=== PATIENT | female | born 1950 | race Caucasian/White ===

== ENCOUNTER 2016-10-16 06:36 | Emergency (ER) | payer OTHER ==
[~2016-10-16] VITALS: Ht 170.2 cm; Wt 90.7 kg
[~2016-10-16 06:36] MED LIST: ASPIRIN EC325 MG PO; ASPIRIN EC81 MG PO; ATORVASTATIN CA80 MG PO; NICORETTE4 M2 BUCCAL; TUMS200 MG PO
--- NOTE | 2016-10-16 17:13 | EKG ---
[facility] [address] [facility] [place] [address] Signed Normal sinus rhythm Possible Left atrial enlargement Borderline ECG When compared with ECG of 29-APR-2016 20:18, T wave amplitude has increased in Anterior leads Confirmed by IRENE JARRETT MD ([id number]) on 10/16/2016 5:13:07 PM Electronically Signed By: IRENE JARRETT MD 10/16/16 1713 PATIENT NAME: MIAN VYAS WINSOME Electrocardiogram DATE OF : 54 PHYSICIAN: IRENE JARRETT MD REPORT #: [id number] REPORT IS CONFIDENTIAL AND NOT TO BE RELEASED WITHOUT AUTHORIZATION
[2016-11-03] MEDS ORDERED: CLINDAMYCIN HC150 MG PO (17:17)
== END 2016-10-16 14:01 | disposition home or self-care (01) ==
LOC: ED 06:36
DX: I69.320 Aphasia following cerebral infarction (principal); E11.9 Type 2 diabetes mellitus without complications; F20.9 Schizophrenia, unspecified; R53.1 Weakness; F17.200 Nicotine dependence, unspecified, uncomplicated; Z79.82 Long term (current) use of aspirin; Z79.899 Other long term (current) drug therapy
CPT/HCPCS: 71010; 80053; 81001; 85025; 93005; 93010; 96360; 96361; 99284; J7030

== ENCOUNTER 2016-11-06 13:20 | Emergency (ER) | payer OTHER ==
[~2016-11-06] VITALS: Ht 170.2 cm; Wt 91.0 kg
[~2016-11-06 13:20] MED LIST changes: +CLINDAMYCIN HC150 MG PO
[2016-11-06] MEDS ORDERED: METFORMIN HCL500 MG PO (14:02)
--- NOTE | 2016-11-06 21:45 | EKG ---
[facility] [address] [facility] [place], [place] [address] Signed Normal sinus rhythm Normal ECG When compared with ECG of 16-OCT-2016 07:29, No significant change was found Confirmed by LANDON LOMBARDI MD ([id number]) on 11/06/2016 9:45:16 PM Electronically Signed By: LANDON LOMBARDI MD 11/06/16 2145 PATIENT NAME: MIAN VYAS WINSOME Electrocardiogram DATE OF : 54 PHYSICIAN: LANDON LOMBARDI MD REPORT #: [id number] REPORT IS CONFIDENTIAL AND NOT TO BE RELEASED WITHOUT AUTHORIZATION
== END 2016-11-06 15:55 | disposition home or self-care (01) ==
LOC: ED 13:20
DX: R53.1 Weakness (principal); E11.9 Type 2 diabetes mellitus without complications; F17.200 Nicotine dependence, unspecified, uncomplicated; Z59.0 Homelessness; Z86.73 Personal history of transient ischemic attack (TIA), and cerebral infarction without residual deficits; Z79.84 Long term (current) use of oral hypoglycemic drugs; Z79.82 Long term (current) use of aspirin; Z79.899 Other long term (current) drug therapy
CPT/HCPCS: 51701; 70450; 71010; 80053; 81001; 83690; 84484; 85025; 93005; 93010; 96360; 96361; 99284; J7030

== ENCOUNTER 2016-12-06 16:44 | Emergency (ER) | payer OTHER ==
[~2016-12-06] VITALS: Ht 170.2 cm; Wt 90.7 kg
[~2016-12-06 16:44] MED LIST changes: +METFORMIN HCL500 MG PO
[2016-12-07] MEDS ORDERED: PROMETHAZINE HC25 M1 PO (00:41)
[2016-12-07] MEDS ORDERED: NORCO 5-325 TA1 EACH PO (00:41)
[2016-12-07] MEDS ORDERED: COLACE100 MG PO (00:41)
== END 2016-12-07 01:07 | disposition home or self-care (01) ==
LOC: ED 16:44
DX: R10.9 Unspecified abdominal pain (principal); F20.9 Schizophrenia, unspecified; Z85.43 Personal history of malignant neoplasm of ovary; Z86.73 Personal history of transient ischemic attack (TIA), and cerebral infarction without residual deficits; Z91.010 Allergy to peanuts; Z79.82 Long term (current) use of aspirin; Z79.899 Other long term (current) drug therapy
CPT/HCPCS: 71020; 74177; 80053; 81001; 83690; 85025; 87077; 87088; 87186; 96374; 96375; 99284; J1170; J2405; J7040; Q9967

== ENCOUNTER 2016-12-25 13:39 | Inpatient (IN) | payer OTHER ==
[~2016-12-25] VITALS: Ht 170.2 cm; Wt 78.3 kg
[~2016-12-25 13:39] MED LIST changes: +COLACE100 MG PO; +NORCO 5-325 TA1 EACH PO; +PROMETHAZINE HC25 M1 PO
--- OUTSIDE RECORDS SUMMARY | 2016-12-25 16:06 | XMS ---
Demographics + + + | Address | [address] | | | [address] | | | [place] [address] | + + + | Preferred Language | Unknown | + + + | Marital Status | Unknown | + + + | Rastafarian Affiliation | Unknown | + + + | Race | Unknown | + + + | Ethnic Group | Unknown | + + + Author + + + | Author | [facility] | + + + | Organization | [facility] | + + + | Address | [address] | | | [place] [address] | + + + | Phone | | + + + Care Team Providers + + + + | Care Manager Hydraulic Name | Role | Phone | + + + + Unavailable | Unavailable | + + + + PROBLEMS +---------+ + + +--------+ + + | Type | Condition | ICD9-CM | [id number] | Onset | Condition | SNOMED | | | | Code | Code | Dates | Status | Code | +---------+ + + +--------+ + + | Problem | Cerebrovas | | I67.9 | | Active | [id number] | | | cular | | | | | | | | disease, | | | | | | | | unspecifie | | | | | | | | d | | | | | | +---------+ + + +--------+ + + | Problem | Type 2 | E11.9 | | | Active | [id number] | | | diabetes | | | | | | | | mellitus | | | | | | +---------+ + + +--------+ + + | Problem | Ovarian | C56.9 | | | Active | [id number] | | | cancer | | | | | | +---------+ + + +--------+ + + | Problem | Abdominal | R19.00 | | | Active | [id number] | | | mass | | | | | | +---------+ + + +--------+ + + ALLERGIES No Known Allergies SOCIAL HISTORY Never Assessed PLAN OF CARE + +---------+ | Activity | Details | + +---------+ +---+ | | +---+ + + + | Follow Up | as scheduled with PCP Reason:null | + + + VITAL SIGNS + + + + | Height | 67 in | 2016-11-12 | + + + + | Weight | 169.2 lbs | 2016-11-12 | + + + + | BMI | 26.50 kg/m2 | 2016-11-12 | + + + + | Temperature | 97.9 degrees Fahrenheit | 2016-11-12 | + + + + | Heart Rate | 110 /min | 2016-11-12 | + + + + | Blood pressure systolic | 118 mm Hg | 2016-11-12 | + + + + | Blood pressure diastolic | 75 mm Hg | 2016-11-12 | + + + + MEDICATIONS + + + + + + + +--------+ | Medicati | Instruct | Dosage | Frequenc | Start | End Date | Duration | Status | | on | ions | | y | Date | | | | + + + + + + + +--------+ | Tums E-X | Orally | 1 tablet | | | | | Active | | 750 750 | PRN | as | | | | | | | MG | heartbur | needed | | | | | | | | n | | | | | | | + + + + + + + +--------+ | Metformi | Orally | 1 tablet | 12h | Oct, | | | Active | | n HCl | Twice a | with | | 2016 | | | | | 500 mg | day | meals | | | | | | + + + + + + + +--------+ | Atorvast | Orally | 1 tablet | | Oct, | | | Active | | atin | Once a | | | 2016 | | | | | Calcium | day with | | | | | | | | 80 mg | dinner | | | | | | | + + + + + + + +--------+ | Aspirin | orally | 1 tab | 24h | 24 Oct, | | | Active | | 81 mg | daily | | | 2016 | | | | + + + + + + + +--------+ RESULTS No Results PROCEDURES No Known procedures IMMUNIZATIONS No Known Immunizations MEDICAL (GENERAL) HISTORY + + + + | Type | Description | Date | + + + + | Medical History | Ovarian cancer. Patient | | | | was evaluated by | | | | Stephon in 2011. | | | | Debulking surgery was | | | | undertaken with Dr. 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 | | | | The patient was | | | | recommended 6 cycles of | | | | Taxol and carboplatin | | | | chemotherapy. However the | | | | patient declined | | | | chemotherapy at that point. | | | | Patient has not had any | | | | follow-up since then. | | + + + + | Medical History | Stroke | | + + + + | Surgical History | Cancer, removed ovary and | | | | tumor | | + + + + | Hospitalization History | [facility] re: SOB | 04/30/16 | + + + + | Hospitalization History | [facility]: | 08/2016 | | | Acute stroke | | + + + + | Hospitalization History | Left parietal lobe acute or | August/2016 | | | subacute infarct | | + + + + | Hospitalization History | Carotid Ultrasound: No | August/2016 | | | significant stenosis of the | | | | bilateral internal carotid | | | | arteries. Antegrade flow | | | | of the bilateral vertebral | | | | arteries | | + + + + | Hospitalization History | Echocardiogram: Left | August/2016 | | | ventricular systolic | | | | function, normal, EF | | | | 65-70%, mild grade 1 left | | | | ventricular diastolic | | | | dysfunction | | + + + +"
--- NOTE | 2016-12-25 18:08 | NUR ---
REPORT RECEIVED FROM IKER IN ED. WILL ATTEMPT TO PLACE IV WHEN PATIENT ARRIVES TO FLOOR. ALL QUESTIONS ANSWERED IN REPORT. AWAITING ARRIVAL TO ROOM 110.
--- NOTE | 2016-12-25 19:12 | NUR ---
PATIENT HAS JUST BEEN SITUATED IN HER ROOM. STAFF IS GETTING HER SOME FOOD.
--- NOTE | 2016-12-25 21:07 | NUR ---
PATIENT'S ASSESSMENT COMPLETE. BLOOD SUGAR WAS 209, AND GIVEN OF 3 UNITS SQ INSULIN IN THE RIGHT ARM. IV WAS FLUSHED WELL AFTER IV ANTIBIOTIC GIVEN.
--- NOTE | 2016-12-26 00:19 | NUR ---
PATIENT IS RESTING ON HER BACK SUPINE RESPIRATIONS EVEN AND REGULAR EYES CLOSED.
--- NOTE | 2016-12-26 04:51 | NUR ---
PATIENT ADMITED FOR DVT OF THE RT LEG. RIGHT LEG IS SLIGHTLY MORE SWOLLEN , BUT NOT RED OR HOT. PATIENT HAS A PSYC HX , BUT HAS BEEN VERY PLEASANT AND LUCID FOR THE MOST PART ON THIS SHIFT. VS STABLE. ON LOVENOX. PATIENT HAD A CVA LAST AUGUST. . PATIENT NEEDS A CONSULT WITH CASE MANAGEMENT/DISCHARGE PLANNING FOR PLACEMENT. OLDER BROTHER DROPPED HER OFF HERE. 20g IV IN THE LFA WITH LR AT 125mls/hr. PATIENT WAS GOING TO [facility], BUT PATIENT WAS DOING SOME SCREAMIMG AND IN REPORT WE WERE TOLD THEY WILL NOT TAKE HER NOW. PATIENT HAS SLEPT INTERMITTENTLY THROUGH THE SHIFT. PATIENT ARRIVED LAST EVENING JUST BEFORE THE END OF DAY SHIFT. 1800 DAMARI ADA DIET AND ON SLIDING SCALE INSULIN OF WHICH SHE GOT 3 SQ UNITS LAST NIGHT FOR A BLOOD SUGAR OF 209. PATIENT ATE A FAIR SUPER AND IS A STRONG STANDBY ASSIST TO THE BATHROOM. PATIENT NEEDS TO BE ENCOURAGED TO USE HER IS. ACTIVITY AD ARABELLA.
--- NOTE | 2016-12-26 07:07 | NUR ---
RECIEVED BEDSIDE REPORT FROM CRISTINA MARCUS AND CRISTINA PEREZ. PT AWAKE AND ALERT IN BED, NO COMPLAINTS AT THIS TIME.
--- NOTE | 2016-12-26 08:23 | NUR ---
Patient in bed, has breakfast. Will get bedbath after breakfast. Whiteboard updated.
--- NOTE | 2016-12-26 10:28 | NUR ---
Medications reconciled with patient. Poor historian. Per patient, she does not take her medications because she cannot read the labels
--- NOTE | 2016-12-26 11:45 | NUR ---
Patient in bed, very disoriented. Did not know where she was.
--- NOTE | 2016-12-26 12:32 | NUR ---
GOT PT UP TO CHAIR FOR LUNCH. PT REPORTS FEELING "MUCH BETTER" AFTER RESTING THIS MORNING. PT STATES THAT PAIN IN LEG IS BETTER. NO REDNESS OR WARMTH IN R LEG, LE IS SWOLLEN.
--- NOTE | 2016-12-26 14:50 | NUR ---
Patient in bed napping, doing well.
--- NOTE | 2016-12-26 19:16 | NUR ---
PT RESTED IN BED MOST OF SHIFT. REPORTS NO PAIN IN LEG, PAIN IN BACK "ACHY". PT REPORTS FEELING "MUCH BETTER AFTER TAKING A NAP". PT USES CALL LIGHT APPROPRIATLY. VOIDING WELL.
--- NOTE | 2016-12-26 19:38 | NUR ---
RECIEVED REPORT FROM DAY SHIFT NURSE. PT UP TO BATHROOM WITH LUMBER TYING MACHINE OPERATOR AND RN.
--- NOTE | 2016-12-26 20:42 | NUR ---
PT RESTING IN BED. BS OBTAINED. LOVENOX ADMINISTERED. LUNGS DIMINISHED, ENCOURAGED DEEP BREATHING. RLE SWOLLEN, +2-+3 EDEMA, NO REDNESS. PT DENIES NEEDS. CALL MILLER IN REACH. IVF INFUSING. BED ALARM ON.
--- NOTE | 2016-12-26 21:47 | NUR ---
PT SLEEPING ON L SIDE. REPOSITIONS INDEPENDENTLY. CALL MILLER IN REACH. BED ALARM ON.
--- NOTE | 2016-12-26 23:19 | NUR ---
PT UP TO BATHROOM WITH ASSIST. VOIDED. BACK TO BED. IVF INFUSING W/O DIFFICULTY. CALL MILLER IN REACH. BED ALARM ON.
--- NOTE | 2016-12-27 00:23 | NUR ---
PT SLEEPING ON L SIDE. STATES HER EAR HURTS AND REQUESTED A "BLOW-UP DONUT SEAT" TO RELIEVE SOME OF THE PRESSURE OFF HER EAR. OBTAINED ONE FROM [facility]. PT DENIES FURTHER NEEDS. IVF INFUSING W/O DIFFICULTY. CALL MILLER IN REACH. BED ALARM ON.
--- NOTE | 2016-12-27 01:57 | NUR ---
ASSISTED PT TO BATHROOM. VOIDED. BACK TO BED. IV IN HER R FOREARM INFILTRATED. OBTAINED IV ACCESS IN R ARM. PROVIDED PT WITH WARM PACK TO PLACE ON HER ARM. PT DENIES FURTHER NEEDS. CALL MILLER IN REACH. BED ALARM ON.
--- NOTE | 2016-12-27 03:02 | NUR ---
PT SLEEPING. IVF INFUSING W/O DIFFICULTY. SWELLING IN L ARM HAS DECREASED WITH USE OF THE WARM PACK (IV INFILTRATION SITE). CALL MILLER IN REACH. BED ALARM ON.
--- NOTE | 2016-12-27 03:52 | NUR ---
ASSISTED PT TO BATHROOM. PT VOIDED. BACK TO BED. PT DENIES NEEDS. CALL MILLER IN REACH. BED ALARM ON.
--- NOTE | 2016-12-27 04:22 | NUR ---
PT SLEPT WELL. UP TO BATHROOM A FEW TIMES. UNKNOWN LAST BM. VOIDING WELL. NEW IV IN L ARM. RLE +3 EDEMA. NO C/O PAIN. LOVENOX BID.
--- NOTE | 2016-12-27 04:24 | NUR ---
PT SLEEPING. IVF INFUSING. CALL MILLER IN REACH. BED ALARM ON.
--- NOTE | 2016-12-27 05:40 | NUR ---
PT RESTING IN BED. IVF INFUSING. WATER PITCHER FILLED. PT DENIES NEEDS. CALL MILLER IN REACH.
--- NOTE | 2016-12-27 07:22 | NUR ---
RECIEVED BEDSIDE REPORT FROM CRISTINA DOTSON. PT AWAKE AND ALERT IN BED. PT IS C/O EAR ACHE WHEN LYING ON LEFT SIDE D/T POSITIONING. NO REDNESS OR WARMTH ON EAR. BED ALARM ON.
--- NOTE | 2016-12-27 08:13 | NUR ---
DR. JARRETT IN TO SEE PATIENT.
--- NOTE | 2016-12-27 10:20 | NUR ---
PATIENT RESTING IN BED WITH EYES CLOSED. WOULD LIKE A SHOWER LATER TODAY.
--- NOTE | 2016-12-27 11:43 | NUR ---
PATIENT SITTING UP IN BED WITH LUNCH
--- NOTE | 2016-12-27 13:07 | NUR ---
PT RESTING IN BED, INVITED ME IN. SHE MUMBLED SOMETHING THAT RESEMBLED HELLO, AND THEN TRIED TO PULL HERSELF UP AND GATHER HER THOUGHTS. HER RN FELT SHE HAD NOTICED A DECLINE IN PT'S COGNITIVE ABILITIES. I VISITED WITH HER, HER THOUGHTS WERE SOMEWHAT JUMBLED, AND THE MORE WE TALKED THE MORE SHE WAS AWARE THAT HER WORDS WEREN'T MAKING MUCH SENSE. I ASKED HER IF I COULD PRAY FOR HER, SHE SAID "PLEASE", AND HELD OUT HER HAND. GOD BLESS HER , I WILL CONTINUE TO FOLLOW NEEDED
--- NOTE | 2016-12-27 13:27 | NUR ---
PT SLEEPING, BREATHING EVEN AND UNLABORED.
--- NOTE | 2016-12-27 14:33 | NUR ---
PATIENT UP ONE PERSON ASSIST WITH WALKER TO SHOWER. LINES CHANGED. FRESH ICE WATER GIVEN.
--- NOTE | 2016-12-27 14:45 | NUR ---
patient back to bed from shower. patient refused to sit in the chair.
--- NOTE | 2016-12-27 14:55 | NUR ---
PT IS UPSET THAT SHE WAS ASKED TO SIT IN THE CHAIR. SHE STATED THAT "THE CHAIR WOULD KILL HER". PT IS TRYING TO BLOW UP A DOUGHNUT CUSHION FOR HER EAR, STATING THAT SHE THINKS HER EAR HAS AN ABCESS DUE TO LAYING ON IT. PT'S SISTER IS AT BEDSIDE. PT'S SISTER WOULD LIKE TO MEET WITH DR JARRETT AND GLADYS MEJIA.
--- NOTE | 2016-12-27 16:00 | NUR ---
SNAP SHEARER AND FAMILY IN TALKING WITH PATIENT.
--- NOTE | 2016-12-27 16:08 | NUR ---
CARE CONFRENCE WITH PT'S SISTER, ROBRETO PRIVATE WATCHMAN, DR JARRETT, AND ALL RN. DISCUSSION AROUND PT FUTURE CARE, SERVICES AVAILABLE. PT WOULD LIKE TO BE FULL CODE. PT'S SISTER WILL LOOK INTO AQUIRING SERVICES FOR PT WITH [employer] AND ANIMAL LABORATORY TECHNICIAN. PT REPORTS LEG FEELS MUCH BETTER, SWELLING HAS REDUCED. NO COUGH NOTED. LUNGS CLEAR.
--- NOTE | 2016-12-27 16:16 | NUR ---
PT CARE CONFERENCE MET WITH PT, PT'S SISTER GUSTABO, DR JARRETT, MYSELF AND ALL EVANS. DISCUSSED PLACEMENT OF PT AFTER BEING DISCHARGED. PT AND SISTER WOULD LIKE HER TO GO TO [facility], HOWEVER NOT SURE IF THEY WILL TAKE HER SHE LEFT AMA IN AUGUST. ALSO STATED THAT I COULD CALL [facility] AND SEE IF THEY WOULD BE ABLE TO TAKE HER. LOUIS IS GOING TO LOOK INTO GETTING POWER OF FOOT PRESS OPERATOR AND THE FINANCIAL ASPECT OF THINGS. DR JARRETT ALSO TALKED WITH PT AND SISTER REGARDING THE PT CODE STATUS AND SHE STATES SHE WANTS EVERYTHING DONE FOR HER. PT LAYING IN THE BED MUMBLING TO HERSELF AND JUST TALKING ABOUT PEOPLE GOING TO HURT HER ETC. DR JARRETT ATTEMPTING TO REASSURE PT.
--- NOTE | 2016-12-27 16:21 | NUR ---
READJUSTED PT IN BED. PT REPORTS PAIN IS STILL WELL CONTROLLED. SENSATION IS RETURNING, PT REPORTS "NUMB AND TINGLING ALL OVER" AT THIS TIME.
--- NOTE | 2016-12-27 16:45 | NUR ---
I CALLED [facility] THEY STATED THEY WOULD LOOK AT THE CHART BUT WERE UNSURE IF THEY WOULD BE ABLE TO TAKE PT DUE TO BEHAVIORS SHE HAS EXHIBITED THEIR AT OTHER ADMISSIONS. CHART NOTES SENT TO [facility]. CALLED AND TALKED WITH JAKI AT [facility] AND GAVE HER ZE PHONE NUMBER. LOUIS CALLED AND STATED THAT SHE HAD CALLED TO TALK TO APRON MAN AND STATED THEY COULDN'T HELP HER TODAY. SHE WENT TO LIBRARY AND PRINTED OFF A DURABLE POWER OF AUDIT INTERN FOR MEDICAL AND STATES SHE WILL BRING THAT IN TOMORROW AM, WHETHER MIAN WILL SIGN IT OR NOT SHE DIDN'T KNOW. SHE ALSO STATED THAT SHE TALKED TO [facility] ABOUT MIAN AND THEY STATED THEY HAD EVERYTHING SET UP FOR HER TO GO SHE JUST NEEDS TO AGREE TO IT. SISTER DID STATE IN EARLIER CARE CONFERENCE THAT [facility] WILL NOT TAKE HER. WELL TALK WITH PARTIES TOMORROW.
--- NOTE | 2016-12-27 18:36 | NUR ---
PATIENT RESTING IN BED WATCHING TV. CALL BUTTON IN REACH. NO OTHER NEEDS AT THIS TIME.
--- NOTE | 2016-12-27 19:45 | NUR ---
RECEIVED REPORT FROM CRISTINA CARRIZALES FROM [facility]. PT IN BED LAYING ON HER LEFT SIDE. CALL LIGHT WITHIN REACH.
--- NOTE | 2016-12-27 21:00 | NUR ---
PT PLEASANT AND COOPERATIVE. MOSTLY WITH EYES CLOSED, DID ANSWER QUESTIONS. NOTE HER RIGHT LOWER LEG IS LARGER THAN HER LEFT LEG, WITH WARMNESS THROUGHOUT CALF REGION, WITH NO REDNESS. PT STATES THAT THE RIGHT CALF IS SORE COMPARED TO THE LEFT. ATTEMPTED TO FLUSH IV SITE, BUT WAS UNABLE TO FLUSH OR DRAW BLOOD, WILL REPLACE. PT HAS CALL LIGHT WITHIN REACH, OFFERS NO OTHER COMPLAINTS OR NEEDS AT THIS TIME.
--- NOTE | 2016-12-27 21:21 | NUR ---
PATIENT DID ORAL CARE, WASHED HANDS AND FACE. COMBED HER HAIR.
--- NOTE | 2016-12-27 22:30 | NUR ---
DC'D PT IV IN LEFT FOREARM, INTACT. RESTARTED IV IN LEFT HAND, 22 G, TOLERATED WELL. PT HAS LR@65 INFUSING AT THIS TIME. CALL LIGHT WITHIN REACH, NO OTHERS NEEDS REQUESTED.
--- NOTE | 2016-12-27 23:37 | NUR ---
ASSISTED PATIENT TO THE BATHROOM USING WALKER AND BACK TO BED. CALL LIGHT IS WITHIN PATIENT'S REACH. BED ALARM ON.
--- NOTE | 2016-12-28 02:10 | NUR ---
PT USED CALL LIGHT TO VOID. ANOTHER RN TOOK PT. LT LEG REMAINS UNCHANGED AT THIS TIME. PT OFFERS NO COMPLAINTS OF DISCOMFORT.
--- NOTE | 2016-12-28 04:00 | NUR ---
PT LAYING ON RIGHT SIDE, EYES CLOSED, RESP EVEN AND UNLABORED.
--- NOTE | 2016-12-28 05:59 | NUR ---
PT WOKE FOR VITAL SIGNS. ASSESSMENT RIGHT LEG, UNCHANGED FROM BEGINING OF SHIFT. WARM, SOME PINKNESS WITH SWELLING CONTINUES. PT HAS NO COMPLAINTS AT THIS TIME. MOSTLY SLEEPING WHILE VS BEING DONE. IV SITE INTACT. CALL LIGHT WITHIN HER REACH.
--- NOTE | 2016-12-28 06:01 | NUR ---
PT HAS BEEN UP TO BATHROOM X 2 THIS SHIFT. HAS BEEN APPROPRIATE, AND MOSTLY SLEEPY. IV RESTARTED IN LT HAND, LR INFUSING @ 65. PT RT LEG REMAINS WARM, WITH SPOTS OF PINKNESS, WITH SWELLING IN RT FT. ANKLE. PT HAS TURNED SELF THROUGHOUT THE NIGHT. ONE PERSON ASSIST TO BATHROOM, USES CALL LIGHT APPROPRIATELY.
--- NOTE | 2016-12-28 07:27 | NUR ---
PT CALLED, UP TO BATHROOM, THEN TO CHAIR. GOT HER SET UP WITH BREAKFAST AND AND WARM BLANKETS. PT DID FINE WITH WALKER. CALL LIGHT IN PLACE
--- NOTE | 2016-12-28 07:45 | NUR ---
PT SITTING UP IN RECLINER EATING BREAKFAST. REPORTS NO PAIN OR NAUSEA
--- NOTE | 2016-12-28 09:50 | NUR ---
PT UP TO BATHROOM WITH INTERVENTIONAL CARDIOLOGIST TO TAKE SHOWER.
--- NOTE | 2016-12-28 10:20 | NUR ---
PT SISTER LOUIS IS HERE THIS AM AND BROUGHT IN DURABLE POWER OF POST PARTUM NURSE FORMS FOR PT TO SIGN. ALSO A NOTERY WAS HERE TO NOTORIZE THESE FORMS.
--- NOTE | 2016-12-28 11:47 | NUR ---
TOOK SOME HAMMAD AWAY FROM PT. PUT THEM IN A ZIPLOC BAG AND PUT THEM IN HER CLOSET, SHE STILL HAD A PAIR OF KID SCISSORS, NURSE AWARE, PT. DECIDED TO CUT HER HAIR. PT SAID HER HAIR WAS IN HER EYES. TOOK PTS BLOOD SUGAR AND IT WAS 174 AND GOT HER SET UP WITH HER LUNCH TRAY.
--- NOTE | 2016-12-28 12:49 | NUR ---
PT IS IN ROOM TRYING TO TAKE A NAP WITH HER HEAD UNDER THE BLANKETS, I PULLED THE BLANKETS DOWN AND CHECKED ON HER, SHE IS DOING FINE. SAID SHE IS JUST TIRED, TURNED THE LIGHTS OFF AND TOOK HER TRAY OUT. CALL LIGHT IN REACH
--- NOTE | 2016-12-28 13:00 | NUR ---
[facility] CALLED AND STATED THEY WILL NOT BE TAKING MIAN A PT DUE TO HER NON COMPLIANCE WITH THEIR RULES. TALKED AGAIN WITH [facility] AND SHE IS COMING IN THIS AFTERNOON TO VISIT WITH PT.
--- NOTE | 2016-12-28 13:06 | NUR ---
PT LAYING ON HER LEFT SIDE AGAIN IN BED. SHE SEEMS AWARE OF MY PRESENCE, BUT LACKS THE COGNITIVE ABILITY TO PUT TOGETHER A STRING OF COHESIVE THOUGHTS. SOFT SPOKEN, LOOKS RATHER BEWILDERED. SHE DID SAY YES WHEN I ASKED HER IF SHE WOULD LIKE ME TO PRAY FOR HER. WILL CONTINUE TO FOLLOW
--- NOTE | 2016-12-28 14:45 | NUR ---
PT RESTING IN BED REPORTS NO PAIN, ALERT, ANSWERS QUESTIONS APPROPRIATELY. PT ONE PERSON ASSIST WITH FWW
--- NOTE | 2016-12-28 14:50 | NUR ---
ROLLER OF [facility] IN WITH PT TO ASSESS FOR POSSIBLE ADMISSION TO THERE FACILITY.
--- NOTE | 2016-12-28 16:30 | NUR ---
FAXED CHART NOTES TO [facility] AT [phone], FAX NOTED TO BE BUSY WILL FAX AGAIN IN THE AM.
--- NOTE | 2016-12-28 18:35 | NUR ---
PT HAS BEEN UP IN RECENR FOR MEALS, REPORTS NO PAIN, HAD BM YESTURDAY, REQUESTED PRUNE JUICE TODAY. POWER OF OPTICAL ENGINEERING TECHNICIAN SIGNED BY PT TO SISTER. REP. REPORT [facility] IN TO TALK WITH PT THIS AFTERNOON. PT HAS BEEN COOPERATIVE WITH CARE. GOOD URINE OUT
--- NOTE | 2016-12-28 19:05 | NUR ---
SHIFT REPORT RECIEVED. PATIENT RESTING IN BED. CALL LIGHT IN REACH.
--- NOTE | 2016-12-28 19:30 | NUR ---
PATIENT UP TO RECLINER. CALL LIGHT IN REACH.
--- NOTE | 2016-12-28 20:20 | NUR ---
PATIENT ASSESSMENT COMPLETE AND EVENING MEDS GIVEN. PATIENT IS AAOX3. ANSWERS QUESTIONS APPROPRIATELY. COOPERATIVE WITH CARE. LUNG SOUNDS ARE CLEAR BUT DIMINISHED. PATIENT DENIES NAUSEA OR PAIN. ABDOMINAL MASS PROTRUDES TO THE RIGHT OF THE UMBILUCUS. PATIENT STATES IT IS UNCOMFORTABLE TO TOUCH THE MASS. BOWEL SOUNDS ARE ACTIVE. PATIENT DENIES TINGLING OR NUMBNESS IN THE LOWER EXTREMITIES. DOES STATE THAT SHE CAN FEEL THAT HER "VEINS HAVE EXPLOADED UNDER THE SKIN" ON THE RIGHT INNER THIGH. LEGS ARE WITHOUT REDNESS, PAIN, AND WARM. LEFT PEDAL PULSE IS STRONG, RIGHT PEDAL PULSE IS WEAK/THREADY. PATIENT IS UP IN THE RECLINER WATCHING TV WITH THE CALL LIGHT WITHIN REACH.
--- NOTE | 2016-12-28 21:10 | NUR ---
PATIENT BRUSHED HER TEETH AND FLOSS.
--- NOTE | 2016-12-28 21:38 | NUR ---
PT CALLED AND WANTED TO USE THE BATHROOM AND GET INTO BED. PT OFFERS NO COMPLAINTS ONCE SHE GOT BACK INTO BED. CALL LIGHT WITHIN HER REACH.
--- NOTE | 2016-12-28 22:19 | NUR ---
PATIENT REQUESTING PRN TYENOL FOR ACHING IN RIGHT SHOULDER AND LEFT KNEE. PRN TYENOL PROVIDED PER ORDERS. PATIENT EXPAINS PAIN OCATION AND DISCRIPTION BUT IS NOT MANOLO TO PROVIDE A NUMBER ON THE 0-10 SCALE. SHANA SHAH RESUTED IN A RATING OF 3/10. PATIENT RESTING IN BED. WATCHING TV. CALL LIGHT IN REACH. IV FLUIDS INFUSING, SITE WNL.
--- NOTE | 2016-12-28 22:20 | NUR ---
PATIENT REQUESTING PRN TYENOL FOR ACHING IN RIGHT SHOULDER AND LEFT KNEE. PRN TYENOL PROVIDED PER ORDERS. PATIENT EXPLAINS PAIN LOCATION AND DISCRIBES BUT IS NOT ABLE TO PROVIDE A NUMBER ON THE 0-10 SCALE. NONVERBA SCALE RESULTED IN A RATING OF 3/10. PATIENT RESTING IN BED. WATCHING TV. CALL LIGHT IN REACH. IV FLUIDS INFUSING, SITE WNL. WARM BLANKET PROVIDED.
--- NOTE | 2016-12-28 22:55 | NUR ---
PATIENT APPEARS RESTLESS. CONTINUES TO GET UP TO THE SIDE OF THE BED AND THEN BACK IN BED. REQUESTED ASSISTANCE TO THE BATHROOM, WHICH RN ASSISTED WITH. PATIENT BACK IN BED. STATES SHE WANTS TO SLEEP BUT JUST CANNOT GET COMFORTABLE. PATIENT IS FIGGETING WITH THE BLANKETS AND IS NOT ABLE TO TELL THE RN WHAT SHE NEEDS. PRN MEDS FOR AGITATION PROVIDED. EXPLAINED MEDICATION TO PATIENT AND SHE AGREED TO TRY TO SEE IF IT HELPS. WILL CONTINUE TO MONITOR.
--- NOTE | 2016-12-28 23:29 | NUR ---
PATIENT RESTING IN BED. RR 16. CALL LIGHT IN REACH. BED ALARM ON.
--- NOTE | 2016-12-29 01:05 | NUR ---
PATIENT GOT UP SITTING BY THE BED, ALARM WENT OFF. ASSISTED PATIENT TO THE BATHROOM BACK TO BED. DAMARI IGHT WITHIN REACH. PATIENT IS STILL AWAKE CLIPPING HER TOE NAILS.
--- NOTE | 2016-12-29 02:00 | NUR ---
PATIENT RESTING IN BED. HOB ELEVATED. EYES CLOSED. RR18. CALL LIGHT IN REACH.
--- NOTE | 2016-12-29 04:19 | NUR ---
PATIENT RESTED ON AND OFF THROUGHOUT SHIFT. REPORTED JOINT SORENESS, PRN TYLENOL GIVEN X1. PATIENT AAOX3, FORGETFUL AND POOR HISTORIAN. LUNG SOUNDS DIMINISHED. ABD MASS TO RIGHT OF UMBILICUS, TENDER TO PALPITAION. BOWELS ACTIVE. ADA DIET & GLUCOSE CHECKS. SBA W/FWW. CMS INTACT. IV FLUIDS INFUSING. BED ALARM IN USE.
--- NOTE | 2016-12-29 04:20 | NUR ---
PATIENT RESTING IN BED. EYES CLOSED. RR 18. HOB ELEVATED. CALL LIGHT IN REACH. BED ALARM ON.
--- NOTE | 2016-12-29 05:48 | NUR ---
HOME ECONOMICS TEACHER IN ROOM PERFORMING VS. PATIENT RESTING IN BED, IS DROWSY BUT COMPLIANT WITH CARE. IVF INFUSING, SITE WNL. PATIENT DENIES PAIN. CALL LIGHT IN REACH. NO FURTHER NEEDS AT THIS TIME.
--- NOTE | 2016-12-29 07:10 | NUR ---
BEDSIDE REPORT RECEIVED FROM CRISTINA KWAN. PT AWAKE IN BED, DRINKING COFFEE. IVF INFUSING AT 65 ML/HR, IV PATENT. PT HAS CALL LIGHT IN REACH. BED ALARM SET.
--- NOTE | 2016-12-29 07:29 | NUR ---
patient sitting up in bed watching TV. breakfast set up. fresh ice water and coffee given. call button in reach.
--- NOTE | 2016-12-29 08:03 | NUR ---
PT ASSESSMENT COMPLETE. PT ORIENTED TO PERSON, AND PLACE, NOT TO EXACT DATE. DORSALIS PEDAL PULSES PALPATED BIATERALLY, FAINT, LOWER EXTREMITIES WARM, DRY, CAP REFILL <3. PT LUNGS CLEAR IN ALL LOBES. IV PATENT, FLUSHES WELL, IVF INFUSING AT 65 ML/HR. BED ALARM SET. PT EATING BREAKFAST, HAS CALL LIGHT. NO ADDITIONAL REQUESTS AT THIS TIME.
--- NOTE | 2016-12-29 08:50 | NUR ---
PATIENT UP TO SHOWER. LINENS CHANGED.
--- NOTE | 2016-12-29 09:30 | NUR ---
PT CALLED. DONE WITH SHOWER. ASSISTED PT WITH DRYING, GETTING DRESSED AND BACK TO BED. BED ALARM ON. CALL LIGHT WITHIN REACH IS BEDSIDE TABLE WITH PT BELONGINGS. PT DENIES FURTHER NEEDS.
--- NOTE | 2016-12-29 09:38 | NUR ---
PATIENT SITTING UP IN BED WATCHING TV. NO NEEDS AT THIS TIME. CALL BUTTON IN REACH. FRESH ICE WATER.
--- NOTE | 2016-12-29 10:13 | NUR ---
O810 REFAXED CHART NOTES TO [facility] AT [phone]. AGAIN RECIEVED BUSY NOTE FROM [facility]. 0905 TALKED WITH JAKI FROM [facility], TOLD HER I HAD FAXED NOTES X2 AND GOTTEN A BUSY SIGNAL. SHE SAID WELL ARE YOU FAXING IT TO [phone] TOLD HER NO I HAD FAXED IT TO THE NUMBER SHE HAD WRITTEN, SHE THEN STATED SHE MUST HAVE WRITTEN DOWN THE WRONG NUMBER. REFAXED CHART NOTES TO HER. RECIEVED FAX CONFIRMATION. 1010 CALLED [facility]. UNABLE TO SPEAK WITH ADMISSIONS PERSONEL, BUT TOLD TO FAX CHART NOTES TO [phone] TO INCLUDE FACESHEET, ER NOTES, H AND P, PROG NOTES, IMAGING, LABS, AND MEDS.
--- NOTE | 2016-12-29 10:39 | NUR ---
CHECKED ON PT, PT HAS NO REQUESTS AT THIS TIME. BED ALARM SET, CALL LIGHT IN REACH. PT INFORMED THAT LUNCH WILL BE COMING IN ABOUT AN HOUR.
--- NOTE | 2016-12-29 11:36 | NUR ---
RECIEVED A PHONE CALL FROM [facility] STATING THEY WOULD TAKE THE PT AFTER THEY TALK WITH [employer] AND HER [employer] COACH, THEY STATED IT WOULD TAKE THEM A WEEK TO BE ABLE TO TAKE HER TO MAKE SURE THEY HAVE AUTH, FURNITURE, ORDERS AND ALL FOR PT TO MOVE IN. INFORMED DR JARRETT OF THIS.
--- NOTE | 2016-12-29 11:54 | NUR ---
1130 RECIEVED PHONE CALL FROM [facility] STATING THEY CAN'T / WON'T TAKE PT ON AT THIS TIME 1150 RECIEVED A PHONE CALL FROM MIQUEL [facility] STATING THEY ARE GOING TO HAVE TO WAIT UNTIL [facility] GETS THE FUNDING AVAILABLE TO PAY FOR HER PLACEMENT IN A FACILITY. 1155 CALLED [facility]PT OF [facility] LEFT MESSAGE FOR GIOVANA TO CALL ME BACK.
--- NOTE | 2016-12-29 11:56 | NUR ---
PT SITTING UP IN BED, EATING LUNCH. ADMINISTERED 1 UNIT NOVOLOG INSULIN PER SLIDING SCALE FOR 146 CBG. PT HAS CALL LIGHT, NO ADDITIONAL REQUESTS AT THIS TIME. BED ALARM SET.
--- NOTE | 2016-12-29 12:12 | NUR ---
PATIENT SITTING UP IN BED WATCHING TV AND EATING LUNCH. CALL BUTTON IN REACH.
--- NOTE | 2016-12-29 12:46 | NUR ---
ANSWERED PT CALL LIGHT. BROUGHT PT WARM BLANKET PER PT REQUEST. NO ADDITIONAL REQUESTS AT THIS TIME. CALL LIGHT IN REACH.
--- NOTE | 2016-12-29 13:49 | NUR ---
PT USED CALL LIGHT APPROPRIATELY. ASSISTED PT TO RESTROOM WITH FWW AND SBA. PT HAD 550 ML VOID, PT BACK TO BED. IVF INFUSING AT 65 ML/HR. BED ALARM SET. CALL LIGHT IN REACH. BROUGHT PT MORE ICE FOR POP.
--- NOTE | 2016-12-29 14:54 | NUR ---
PT AFTERNOON ASSESSMENT COMPLETE. PT LYING IN BED, IV LR INFUSING AT 65 ML/HR. PT'S LUNGS CLEAR THROUGHOUT ALL LOBES. PT CSM INTACT, MODERATE NON-PITTING EDEMA NOTED IN RLE. FAINT PULSES AUSCULTATED BILATERALLY LOWER EXTREMITIES. PT HAS NO REQUESTS AT THIS TIME, CALL LIGHT IN REACH. BED ALARM IS SET.
--- NOTE | 2016-12-29 15:33 | NUR ---
PATIENT RESTING IN BED WITH EYES CLOSED.
--- NOTE | 2016-12-29 16:39 | NUR ---
ANSWERED PT'S CALL LIGHT. ASSISTED PT TO RESTROOM, PT VOIDED 500 ML. PT BACK TO BED, BED ALARM SET. CALL LIGHT IN REACH.
--- NOTE | 2016-12-29 16:40 | NUR ---
RN IN ASSISTING PATIENT INTO BATHROOM.
--- NOTE | 2016-12-29 16:42 | NUR ---
RETURNED PT'S SON BRUNA'S PHONE CALL. UPDATED SON ON PT STATUS. SON SAID HE SPOKE TO [facility] TODAY, AND HE IS WORKING ON GETTING HER THINGS TOGETHER.
--- NOTE | 2016-12-29 18:10 | NUR ---
IN PT ROOM, PT HR 120 ON MONITOR AND BY RADIAL PULSE. PT LYING BACK IN BED. PT TALKING ABOUT TIMES WHEN SHE IS AGITATED "SOMETHING IS WRONG WITH HER FAMILY, THAT SHE IS UGLY" PT DENIES AGITATION AT THIS TIME. BP STABLE, WILL CONTINUE TO MONITOR. CALL LIGHT IN REACH.
--- NOTE | 2016-12-29 18:12 | NUR ---
PATIENT RESTING IN BED WATCHING TV. RN NOTIFIED ABOUT HEART RATE. CALL BUTTON IN REACH. FRESH ICE WATER GIVEN.
--- NOTE | 2016-12-29 18:53 | NUR ---
ANSWERED PT CALL LIGHT, PT STATES SHE CAN'T BREATHE. ELEVATED HEAD OF BED. CHECKED SPO2, 95% ON ROOM AIR. PT STATES SHES OKAY. WILL CONTINUE TO MONITOR. PT HAS CALL LIGHT IN REACH.
--- NOTE | 2016-12-29 19:00 | NUR ---
PT HAS BEEN COOPERATIVE THROUGHOUT SHIFT. PT RECEIVED TYLENOL X 1 FOR PAIN IN ABDOMEN. PT USED CALL LIGHT APPROPRIATELY FOR TRIPS TO RESTROOM, CONTINUES TO BE IMPULSIVE WITH WALKER USE, TRIES TO GET UP WITHOUT WALKER. PT CSM INTACT TRHOUGHOUT SHIFT. MODERATE EDEMA NOTED IN RLE, PULSES PALPABLE. LUNGS CLEAR THROUGHOUT SHIFT.
--- NOTE | 2016-12-29 19:05 | NUR ---
SHIFT REPORT RECIEVED. PATIENT RESTING IN BED. CALL LIGHT IN REACH. BED ALARM ON. PATIENT DENIES NEEDS AT THIS TIME.
--- NOTE | 2016-12-29 19:50 | NUR ---
EVEING MEDS GIVEN PER ORDER. PATIENT AAOX3, ANSWERS SOME QUESTIONS APPROPRIATELY BUT RESPONDS WITH CONFUSED SPEECH AT OTHER TIMES. LUNG SOUNDS ARE DIMINISHED THROUGHOUT AND CLEAR. BOWEL SOUNDS ACTIVE, NO NAUSEA AND GOOD APPETITE. PATIENT DENIES NUMBNESS BY REPORTS TINGLING IN HER LOWER EXTREMITIES. PEDAL PULSE ON RIGHT SIDE IS FAINT, LEFT SIDE IS STRONG. VS ARE WNL. PATIENT IS SLIGHTLY AGITATED AND REPORTS FEELING CONCERNED ABOUT PEOPLE NOT LIKING HER. STATES "THEY GAVE ME CANCER THROUGH MY THROAT WITH THE FOOD". PRN SEROQUEL GIVEN. PATIENT RESTING IN BED. CALL LIGHT IN REACH. BED ALARM ON.
--- NOTE | 2016-12-29 22:00 | NUR ---
PATIENT REQUESTED ASSISTANCE UP TO THE BATHROOM. SBA, PATIENT DOES NOT USE WALKER APPROPRIATELY. BACK IN BED. DENIES PAIN. NO FURTHER NEEDS AT THIS TIME. CALL LIGHT IN REACH. BED ALARM ON.
--- NOTE | 2016-12-29 23:07 | NUR ---
PATINT RESTING IN BED. EYES CLOSED. RR 16. CALL LIGHT IN REACH. BED ALARM ON.
--- NOTE | 2016-12-30 02:15 | NUR ---
PATIENT RESTING IN BED. EYES CLOSED. RR18. CALL LIGHT IN REACH. BED ALARM ON.
--- NOTE | 2016-12-30 04:15 | NUR ---
PATIENT REQUESTED ASSISTANCE. BRANCH MECHANIC ASSISTED HER TO THE BATHROOM AND BACK INTO BED. BED ALARM ON. CALL LIGHT IN REACH.
--- NOTE | 2016-12-30 04:28 | NUR ---
PATIENT RESTED ON AND OFF THROUGHOUT THE NIGHT. DURING BEGINNING OF SHIFT SHE BECAME INCREASINGLY AGITATED, PRN MEDS FOR AGITATION GIVEN. PATIENT ANSWERS SOME QUESTIONS APPROPRIATELY AND IS UNABLE TO EXPRESS HER NEEDS AT OTHER TIMES. PATIENT USES CALL LIGHT APPROPRIATELY, BUT DOES NOT WAIT FOR ASSISTANCE TO BE IN THE ROOM TO START GETTING UP. BED ALARM IN USE. ADA DIET AND GLUCOSE CHECKS. VS WNL.
--- NOTE | 2016-12-30 06:23 | NUR ---
PATIENT RESTING IN BED. MORNING VS ARE WNL. PATIENT DENIES ANY NEEDS AT THIS TIME. BED ALARM ON. CALL LIGHT IN REACH.
--- NOTE | 2016-12-30 07:07 | NUR ---
BEDSIDE REPORT RECEIVED FROM RN ANIYA, PT SLEEPING. IVF INFUSING AT 65 ML/HR. BED ALARM IS SET. WILL CONTINUE TO MONITOR.
--- NOTE | 2016-12-30 07:50 | NUR ---
ASSISTED PT TO RESTROOM FOR VOID W FWW AND STANDBY ASSIST. PT RECEIVED 3 UNITS NOVOLOG FOR CBG 177. PT UP TO CHAIR FOR BREAKFAST. CALL LIGHT GIVEN TO PT.
--- NOTE | 2016-12-30 08:05 | NUR ---
DR. JARRETT IN TO SEE PT. VERBAL ORDER TO STOP IVF. IV SALINE LOCKED, WNL. PT UP TO CHAIR. GIVEN CALL LIGHT. PT STATING SHE DOES NOT FEEL GOOD. ASKED PT TO DESCRIBE, PT DOES NOT VERBALIZE. WILL CONTINUE TO MONITOR.
--- NOTE | 2016-12-30 08:11 | NUR ---
PT DID NOT ORDER BREAKFAST, RUBIO HARRIS IN ROOM TO ASSIST PT TO ORDER BREAKFAST. BROUGHT SF PT CHOCOLATE PUDDING UNTIL BREAKFAST ARRIVES. CALL LIGHT W PT.
--- NOTE | 2016-12-30 09:25 | NUR ---
PT COMPLAINING OF PAIN IN VEINS. IN ARMS. CSM INTACT. GAVE PT TYLENOL 500 MG PRN, ZOLOFT. BROUGHT PT WARM BLANKET TO WRAP AROUND LEFT ARM. IV SITE PATENT, FLUSHES WELL, NO REDNESS AROUND SITE. PT GIVEN CALL LIGHT, UP IN CHAIR AT THIS TIME. IV SALINE LOCKED. WILL CONTINUE TO MONITOR.
--- NOTE | 2016-12-30 10:48 | NUR ---
PT SAID HER IV WAS HURTING HER I LET HER NURSE KNOW.
--- NOTE | 2016-12-30 11:08 | NUR ---
ANSWERED PT CALL LIGHT, ASSISTED PT BACK TO BED WITH SBA AND FWW. BED ALARM IN PLACE. CALL LIGHT IN REACH. WILL CONTINUE TO MONITOR.
--- NOTE | 2016-12-30 13:45 | NUR ---
PT APPEARED AGITATED, RUBBING LEFT ARM, TANGLED IN COVERS. CHECKED ON PT. PT STATING VEINS ARE BOTHERING HER AGAIN IN HER ARM. PT SPEECH DIFFICULT TO COMPREHEND. ASSESSED EXTREMITIES, CSM INTACT. BROUGHT PT WARM BLANKET. PT HAS NO ADDITIONAL REQUESTS. CALL LIGHT IN REACH.
--- NOTE | 2016-12-30 14:28 | NUR ---
PT ASSESSMENT COMPETE. PT CONTINUES TO COMPLAIN OF "SHOOTING PAINS" IN RIGHT ARM. ADMINISTERED PRN PO 500 MG ACETAMINOPHEN FOR REPORTED PAIN. PT DID NOT RATE PAIN WITH A NUMBER. WILL CONTINUE TO MONITOR PAIN. PT EXTREMITIES WARM BIATERALLY UPPER AND LOWER, CAP REFILLS <3 SECONDS IN ALL EXTREMITIES, PULSES STRONG DORSALIS PEDIS BIATERALLY. PTS LUNGS CLEAR. PT ORIENTED TO LOCATION, DATE, SELF. CALL LIGHT IN REACH.
--- NOTE | 2016-12-30 17:44 | NUR ---
ASSISTED PT TO SIT UP AT SIDE OF BED FOR DINNER. PT EATING DINNER. CALL LIGHT IS IN REACH. PT HAS NO ADDITIONAL REQUESTS.
--- NOTE | 2016-12-30 18:05 | NUR ---
PT HAD SHOWER THIS AFTERNOON. PT HAS COMPLAINED OF PAIN IN VEINS IN LEFT AND RIGHT ARMS, RELIEVED BY TYLENOL PRN ADMINISTRATION X 2 AND WARM BLANKETS. PT HAS HAD BED ALARM SET THROUGHOUT SHIFT, HAS USED CALL LIGHT APPROPRIATELY. PT WORKED WITH PHSYICAL THERAPY, CONTINUES TO USE FWW AND SBA. CSM INTACT IN ALL EXTREMITIES, MODERATE NON-PITTING EDEMA NOTED IN RLE. PT HAS BEEN ALERT AND ORIENTED THIS SHIFT.
--- NOTE | 2016-12-30 18:13 | NUR ---
ANSWERED PT CALL LIGHT. TURNED OFF LIGHTS FOR PT. PT HAS CALL LIGHT, BED ALARM SET.
--- NOTE | 2016-12-30 18:51 | NUR ---
SHOWERED PATIENT THIS AFTERNOON. PATIENT DID EVERYTHING HERSELF I JUST STOOD BY.
--- NOTE | 2016-12-30 19:05 | NUR ---
SHIFT REPORT RECIEVED. PATIENT LAYING IN BED WITH EYES CLOSED, AROUSED EASILY TO VOICE. PATIENT REQUESTED FOR LIGHTS TO BE OFF AND CURTAIN TO BE PULLED SO SHE COULD REST. BED ALARM ON. CALL LIGHT IN REACH.
--- NOTE | 2016-12-30 20:20 | NUR ---
BLOOD GLUSOCE CHECK COMPLETED. PATIENT IS RESTING IN BED. STATES SHE JUST WANTS TO REST. DENIES PAIN OR ANY OTHER NEEDS AT THIS TIME. CALL LIGHT IN REACH. BED ALARM ON.
--- NOTE | 2016-12-30 20:45 | NUR ---
EVEING MEDS GIVEN PER ORDER. PATIENT STATES THAT HER STOMACH IS HURTING, DENIES NEEDING PRN NAUSEA MEDS. REQUEST WATER. STATES THAT SHE "JUST WANTS TO SLEEP, TURN OFF THE LIGHTS". BOWEL SOUNDS ARE HYPERACTIVE, ABD IS SOFT AND TENDER. HERNIA IS PRESENT TO RIGHT OF UMBILICUS. LUNGS ARE DIMINSHED BUT CLEAR. SKIN ON LOWER EXTREMITIES IS COOL, SENSATION INTACT. PEDAL PULSE ON RIGHT FOOT WEAK/THREADY. LEFT PEDAL PULSE IS STRONG. PATIENT IS AAOX3. HAS SOME DIFFICULTY EXPRESSING HER NEEDS AT TIME. BED ALARM ON, CALL LIGHT IN REACH.
--- NOTE | 2016-12-30 21:46 | NUR ---
PATIENT REPORTS HAVING SMALL AMOUNT OF EMESIS. STATES HER STOMACH HURTS AND REQUESTED PRN NAUSEA MEDS. PATIENT PROVIDED NEW EMESIS BAG AND ORAL CARE. WILL CONTINUE TO MONITOR.
--- NOTE | 2016-12-30 22:15 | NUR ---
PATIENT REQUESTED WATER AND AN ADDITIONAL PILLOW, WHICH WERE PROVIDED. PATIENT STATES HER STOMACH FEELS BETTER. DENIES NAUSEA. CALL LIGHT IN REACH AND BED ALARM ON.
--- NOTE | 2016-12-30 23:34 | NUR ---
PT CALLED, REQUESTING HELP TO RESTROOM. AMBULATED WITH STANDBY ASSIST WITHN FWW TO BATHROOM. URINE NOTED TO BE HAZY WITH SEDIMENT NOTED. UO 500 MLS. PT PREFORMED ORAL CARE BY SELF. ASSISTED BACK TO BED. BED ALARM LOZENGE MAKER LIGHT IN REACH. WILL CONTINUE TO MONITOR URINE.
--- NOTE | 2016-12-31 01:54 | NUR ---
PT CALLED REQUESTING MEDICATION FOR PAIN. TYLENOL GIVEN FOR JOINT ACHES. FRESH WATER GIVE. PT RESTING IN BED. BED ALARM ON, CALL LIGHT IN PLACE.
--- NOTE | 2016-12-31 02:16 | NUR ---
CONTACTED HOSPITALIST TO REPORT PATIENT HAD CONCENTRATED DARK URINE WITH SEDIMENT. NO NEW ORDERS. CONTINUE TO MONITOR.
--- NOTE | 2016-12-31 03:05 | NUR ---
PATIENT REQUESTED WATER. LOCATED PATIENTS CUP IN THE BED AND GAVE IT TO HER. PATIENT DENIED FURTHER NEEDS AT THIS TIME.
--- NOTE | 2016-12-31 05:24 | NUR ---
PATIENT RESTED ON AND OFF THROUGHOUT THE NIGHT. PATIENT REPORTED THAT HER STOMACH HURT AND HAD SOME EMESIS. PRN ZOFRAN GIVEN X1. PATIENT IS SBA.
--- NOTE | 2016-12-31 05:45 | NUR ---
PATIENT RESTING IN BED. CALL LIGHT IN REACH. NO NEEDS AT THIS TIME.
--- NOTE | 2016-12-31 07:15 | NUR ---
BEDSIDE REPORT RECEIVED FROM CRISTINA KWAN. PT SLEEPING IN BED. BED ALARM SET.
--- NOTE | 2016-12-31 07:40 | NUR ---
PT WAS ATTEMPTING TO GET UP ON HER OWN TO USE THE BATHROOM. BED ALARM WENT OFF AND BOTH NURSE JABIERENE AND MYSELF RESPONDED. HELPED PT TO BATHROOM, THEN PT WAS SAT IN CHAIR FOR BREAKFAST. TAG ALARM ON
--- NOTE | 2016-12-31 08:15 | NUR ---
PT MORNING ASSESSMENT COMPLETE. CBG 177, ADMINISTERED 3 UNITS NOVOLOG INSULIN. PT COMPLAINING OF STOMACH PAIN, ADMINISTERED 500 MG ACETAMINOPHEN FOR PAIN, PT DOES NOT RATE PAIN. PT'S LUNGS CLEAR THROUGHOUT ALL LOBES. CSM INTACT BILATERALLY UPPER AND LOWER EXTREMITIES. MODERATE NON-PITTING EDEMA NOTED ON RLE. PT NOT ORIENTED TO DATE, EVENT. PT HAS BREAKFAST IN FRONT OF HER. CALL LIGHT IN REACH.
--- NOTE | 2016-12-31 08:24 | NUR ---
ADMINISTERED 4 MG ZOFRAN FOR PT REPORTED NAUSEA. PT NOT EATING BREAKFAST, SITTING UP IN CHAIR. PT HAS EMESIS BAG AND CALL LIGHT.
--- NOTE | 2016-12-31 11:56 | NUR ---
PT CBG 164, ADMINISTERED 1 UNIT NOVOLOG PER SLIDING SCALE. ASSISTED PT TO SIDE OF BED TO EAT LUNCH, PT REFUSED TO SIT IN CHAIR FEELS WEAK. PT HAS NO ADDITIONAL REQUESTS. BED ALARM IS SET. CALL LIGHT IN REACH.
--- NOTE | 2016-12-31 12:48 | NUR ---
1014 I TALKED WITH KVNG FROM [employer] ABOUT BEATRICE, SHE STATED SHE NEEDED DOCUMENTATION REGARDING HER PHYSICAL ILLNESS THAT HAS PUT HER IN THE HOSPITAL FOR MEDICAL REASONS, SHE STATED IT WOULD BE A WHILE BEFORE THEY COULD FINISH OUT THE MEDICAID END FOR HER. DID SAY THAT EVEN THOUGH THIS MAY TAKE AWHILE SHE FELT IF SHE MEETS INITIALLY THEY MAY GIVE A PENDING AUTH TO [facility] SO PT COULD GET MOVED OVER THERE. I ALSO PER DR LOMBARDI REQUEST DID INFORM [facility] [employer] [employer] ABOUT THIS PT AND THE FACT THAT SHE IS HOMELESS, UNABLE TO CARE FOR HERSELF, THEREFORE A DANGER TO HERSELF. FAXED REQUESTED CHART NOTES TO [facility] 1030 RECIEVED A CALL FROM FLACO AT [employer] CONCERNING THIS PT. QUESTIONS ANSWERED AND SHE SAID SHE WILL LOOK INTO THINGS.
--- NOTE | 2016-12-31 15:44 | NUR ---
PT HAS NOT HAD BM, CRISTINA BISWAS INSERTED BISOCODYL SUPPOSITORY PRN. PT AMIRAH WELL. PT IN BED, BED ALARM SET. CALL LIGHT IN REACH. WILL CONTINUE TO MONITOR.
--- NOTE | 2016-12-31 17:00 | NUR ---
PT ASSESSMENT COMPLETE. PT COMPAINING OF "SHOOTING PAIN" IN STOMACH. PT DID HAVE BM WITH HARD STOOL. ADMINISTERED PRN TYLENOL 500MG PO. PT LUNGS CLEAR THROUGHOUT ALL LOBES, CSM INTACT UPPER AND LOWER EXTREMITIES. MINIMAL EDEMA NOTED IN RLE. CALL LIGHT IN REACH, BED ALARM SET. WILL CONTINUE TO MONITOR.
--- NOTE | 2016-12-31 18:13 | NUR ---
PT RECEIVED SUPPOSITORY TODAY, HAD SMALL BM THIS AFTERNOON, HARD STOOL. PT HAS BEEN COOPERATIVE THROUGHOUT SHIFT, NOT ORIENTED TO DATE OR EVENT. PT WALKED WITH RN THIS MORNING AROUND [employer] HALLWAY X 1 LAP. PT CONTINUED TO HAVE BED ALARM SET, USED FWW WITH SBA. PT COMPLAINED OF NAUSEA THIS MORNING, ZOFRAN ADMINISTERED X 1. TYLENOL ADMINISTERED FOR ABDOMINAL PAIN X 2 THIS SHIFT.
--- NOTE | 2016-12-31 19:10 | NUR ---
GOT PATIENT SET UP FOR SHOWER TODAY BUT SHE WAS VERY SLEEPY.
--- NOTE | 2016-12-31 19:15 | NUR ---
REPORT RECVD FROM ALIZE EVANS. PT SLEEPING IN SIDE LYING POSITION. PT CURRENTLY SL. 1800 DAMARI ADA DIET NOTED. PT REPORTED TO HAVE SMALL HARD BM TODAY. WILL CONTINUE TO MONITOR. BED ALARM ON AND CALL LIGHT IN PLACE.
--- NOTE | 2016-12-31 21:40 | NUR ---
IN TO SEE PT, PT AWAKE SITTING UP IN BED. PM CARE DONE WITH ASSIST OF SPORTS JOURNALIST. PT STATES SHE HAS HAD A GOOD DAY. NO C/O NAUSEA OR PAIN AT THIS TIME. ASSESSMENT COMPLETED, PM MEDICATIONS GIVEN. NO FURTHER NEEDS AT THIS TIME. BED ALARM ON AND CALL LIGHT IN PLACE.
--- NOTE | 2016-12-31 21:49 | NUR ---
PATIENT ORAL CARE. WASHEDH HANDS AND FACE. BLOOD SUGAR CHECKED.
--- NOTE | 2016-12-31 23:30 | NUR ---
IN TO CHECK ON PT, PT APPEARS TO BE SLEEPING. LYING ON L SIDE, RR EVEN AND UNLABORED. NO APPARENT DISTRESS NOTED. BED ALARM ON AND CALL LIGHT IN REACH.
--- NOTE | 2017-01-01 03:12 | NUR ---
PT JUST VIODED 100ML. WILL TRY AGAIN IN ABOUT 1-2HRS.
--- NOTE | 2017-01-01 04:35 | NUR ---
IN TO CHECK ON PT, PT AWAKE WATCHING TV. PT STATES SHE SLEPT WELL. NO FURTHER NEEDS AT THIS TIME. BED ALARM ON, CALL LIGHT IN REACH.
--- NOTE | 2017-01-01 05:19 | NUR ---
PT HAS HAD UNEVENTFUL NIGHT, SLEPT WELL. NO C/O PAIN OR NAUSEA. NO BM NOTED ON SHIFT. PT 1 PERSON STANDBY ASSIST WITH FWW, TOLERATES WELL. PT SLOW TO RESPOND DUE TO APHASIA, ORIENTED TO SELF ONLY.
--- NOTE | 2017-01-01 05:31 | NUR ---
PATIENT ASSISTED TO THE BATHROOM AND BACK TO BED. PATIENT DID A.M. ORAL CARE. WASHED FACE AND HANDS.
--- NOTE | 2017-01-01 07:00 | NUR ---
BEDSIDE HANDOFF REPORT RECEIVED FROM TERMITE RENEWAL INSPECTOR RN. PT SLEEPING, LEFT UNDISTURBED.
--- NOTE | 2017-01-01 08:30 | NUR ---
PT RESTING IN BED, EATING BREAKFAST. PT DENIES PAIN. PT ON ROOM AIR, LUNG SOUNDS CLEAR. PT TOLERATING ADA DIET, GIVN 1 UNIT INSULIN FOR BLOOD GLUCOSE OF 149. PT WITH TRACE EDEMA TO RIGHT LEG, PULSES PALPABLE. BOWEL TONES ACTIVE, GIVEN MIRALAX, DENIES NAUSEA. PT DENIES OTHER NEEDS AT THIS TIME.
--- NOTE | 2017-01-01 09:20 | NUR ---
PT AWAKE IN BED. SET UP FOR SHOWER. EMPTY GARBAGE.
--- NOTE | 2017-01-01 09:56 | NUR ---
AM CARE. ESTELITA PT UP FOR SHOWER. PICKED UP ROOM. PT NOW RESTING IN BED
--- NOTE | 2017-01-01 10:00 | NUR ---
COMPLETE LINEN CHANGE
--- NOTE | 2017-01-01 11:54 | NUR ---
PT RESTING IN BED. PT BLOOD GLUCOSE 112, SS INSULIN HELD. PT DENIES OTHER NEEDS AT THIS TIME.
--- NOTE | 2017-01-01 14:34 | NUR ---
PT AWAKE IN BED. DOING WELL. TOOK VITELS. TOOK TRAY. FRESH ICE WATER
--- NOTE | 2017-01-01 15:30 | NUR ---
PT RESTING IN BED. PT DENIES PAIN. PT ALERT/ORIENTED TO SELF AND PLACE. PT ON ROOM AIR, LUNG SOUNDS CLEAR. BOWEL TONES ACTIVE, TOLERATING ADA DIET. RIGHT LEG WITH TRACE EDEMA, PULSES PALPABLE, EXTREMITIES WARM. PT DENIES OTHER NEEDS AT THIS TIME.
--- NOTE | 2017-01-01 17:00 | NUR ---
BLOOD GLUCOSE 93, SS INSULIN HELD, METFORMIN GIVEN. PT SITTING ON EDGE FO BED EATING DINNER. ROOM PICKED UP, BELONGINGS INCLUDING NAIL TRIMMING KIT PLACED IN CLOSET. PT DENIES OTHER NEEDS AT THIS TIME.
--- NOTE | 2017-01-01 17:54 | NUR ---
PT HAD UNEVENTFUL DAY. PT ORIENTED TO SLEF AND PLACE. PT ON ROOM AIR. TOLERATING ADA DIET. PT SBA TO BATHROOM, VOIDING QS. PT SALINE LOCKED, PATENT. BED ALARM, CAN BE IMPULSIVE.
--- NOTE | 2017-01-01 19:10 | NUR ---
REPORT RECVD FROM MAXIM EVANS. PT IN BED, APPEARS TO BE SLEEPING. BED ALARM ON, CALL LIGHT IN REACH.
--- NOTE | 2017-01-01 21:05 | NUR ---
IN TO SEE PT, PT APPEARS TO BE SLEEPING. AWAKENS TO VOICE. ASSESSMENT COMPLETE AND PM MEDICATIONS GIVEN. TRACE EDEMA NOTED IN THE R LOWER EXTRIMITY. SL FLUSHED. NO FURTHER NEEDS AT THIS TIME. BED ALARM ON, SIDERAILS UP. CALL LIGHT IN REACH.
--- NOTE | 2017-01-02 00:15 | NUR ---
IN TO CHECK ON PT, PT APPEARS TO BE SLEEPING. RR EVEN AND UNLABORED. NO APPARENT DISTRESS NOTED. BED ALARM ON, SIDE RAILS UP. CALL LIGHT IN REACH.
--- NOTE | 2017-01-02 01:34 | NUR ---
PATIENT GOT UP HERSELF, BED ALARM WENT OFF. ASSISTED TO THE BATHROOM. PATIENT SAT BY THE BED, TAKING SNACK, CRACKERS AND JUICE. PATIENT IS LAYING IN THE BED NOW. CALL LIGHT IS WITHIN REACH.
--- NOTE | 2017-01-02 02:30 | NUR ---
IN TO CHECK ON PT, LIGHT ON IN ROOM. PT AWAKE LYING IN BED. PT REQUESTED WATER, ASSISTED WITH CUP. PT REPOSITIONED IN BED BY SELF. NO FURTHER NEEDS AT THIS TIME. BED ALARM ON, ALL RAILS UP. CALL LIGHT IN REACH.
--- NOTE | 2017-01-02 04:30 | NUR ---
IN TO CHECK ON PT, PT APPEARS TO BE SLEEPING. RR EVEN AND UNLABORED. PT LYING ON L SIDE. NO APPARENT DISTRESS. BED ALARM ON, SIDE RAILS IN PLACE. CALL LIGHT IN REACH.
--- NOTE | 2017-01-02 05:46 | NUR ---
PT HAS HAD UNEVENTFUL SHIFT, RESTED WELL. PT NOTED TO BE SLOW TO RESPOND DUE TO EXPRESSIVE APHASIA FROM PREVIOUS STROKE. COMMUNICATES WELL. LUNGS ARE CLEAR. TRACE R LE EDEMA NOTED. BM NOTED ON 12/31/16, PT GETS MIRALAX DAILY. IV SL, FLUSHES WELL. UO QS. 1 PERSON STANDBY ASSIST WITH FWW. BED ALARM IN PLACE FOR SAFETY.
--- NOTE | 2017-01-02 07:18 | NUR ---
BEDSIDE REPORT RECIEVED, PT SLEEPING SOUNDLY. NOC CRISTINA MARIO GAVE REPORT.
--- NOTE | 2017-01-02 08:16 | NUR ---
PT AWAKE IN BED. FRESH ICE WATER. CHANGE LINENS. TOOK BREAKFAST TRAY. CALL LIGHT IN REACH.
--- NOTE | 2017-01-02 09:50 | NUR ---
PT AWAKE IN BED. FRESH ICE WATER. SET UP FOR SHOWER.
--- NOTE | 2017-01-02 11:41 | NUR ---
PT SITTING UP IN BED, WATCHING TV. BG CHECKED, 132. PT'S LUNCH DELIVERED. PT NOW ON PHONE. DENIED OTHER NEEDS.
--- NOTE | 2017-01-02 14:13 | NUR ---
PT IN BED AWAKE STATED SHE DID NOT NEED ANYTHING. CALL LIGHT IN REACH.
--- NOTE | 2017-01-02 15:00 | NUR ---
PT IN BED RESTING. AROUSES TO VERBAL STIMULI. DENIES PAIN. PROVIDED FRESH ICE WATER. PT DENIED OTHER NEEDS.
--- NOTE | 2017-01-02 17:51 | NUR ---
PT AWAKE EATIN DINNER
--- NOTE | 2017-01-02 18:01 | NUR ---
PT SITTING UP IN BED, EATING DINNER. DENIES NEEDS.
--- NOTE | 2017-01-02 18:24 | NUR ---
PT CALLED APROPRIATELY THIS SHIFT. APETITE GOOD. NEW IV TO RH, SL. ACCU CHECKS D/C'D. TRACE EDEMA TO RLE. PT HAS RATED PAIN TO RLE 2/10 OR LESS. UP WITH 1 PERSON ASSIST. BED ALARM IN USE.
--- NOTE | 2017-01-02 19:30 | NUR ---
REPORT RECVD FROM KATHI EVANS. PT IN BED RESTING. BM NOTED TODAY ON SHIFT. PT REQUESTING A SHOWER. PT ADVISED THAT WILL TRY TO HELP HER SHOWER DURING SHIFT. NO FURTHER NEEDS AT THIS TIME. BED ALARM, CALL LIGHT IN PLACE.
--- NOTE | 2017-01-02 20:10 | NUR ---
BED ALARM SOUNDED. PT STATED SHE NEEDED TO USE THE BATHROOM, CALL LIGHT WITHIN REACH BUT DIDNT' USE IT. ASSISTED, MIMINALLY TO USE THE BATHROOM, PT WASHED HER HANDS AND BRUSHED TEETH. REQUESTED TO SIT AT THE EDGE OF THE BED. PLEASANT AND COOPERATIVE.
--- NOTE | 2017-01-02 20:30 | NUR ---
PT CALLED, REQUESTED SHOWER. ADVISED PT WILL HELP HER SHOWER AFTER VITALS ARE COMPLETE. PT AGREES. BED ALARM ON, CALL LIGHT IN REACH.
--- NOTE | 2017-01-02 21:24 | NUR ---
IN TO SEE PT, PT RESTING IN BED. ASSESSMENT COMPLETE AND PM MEDICATIONS GIVEN. TRACE EDEMA NOTED IN THE RLE. PT SL, FLUSHES WELL. IV COVERED. PT UP TO SHOWER WITH ASSIST FROM ACID RECOVERY OPERATOR. WILL CHECK BACK WITH PT.
--- NOTE | 2017-01-02 21:45 | NUR ---
IN TO SEE PT, PT BACK IN BED AFTER SHOWER. IV INTACT. NO FURTHER NEEDS AT THIS TIME. BED ALARM ON, CALL LIGHT IN REACH.
--- NOTE | 2017-01-02 23:10 | NUR ---
PT CALLED, IN TO CHECK ON PT. PT REQUEST BATHROOM LIGHT BE TURNED ON WHILE SLEEPING. NO FURTHER NEEDS AT THIS TIME. BED ALARM ON, CALL LIGHT IN REACH.
--- NOTE | 2017-01-03 00:45 | NUR ---
IN TO CHECK ON PT, PT APPEARS TO BE SLEEPING. RR EVEN AND UNLABORED. BED ALARM ON AND CALL LIGHT IN REACH.
--- NOTE | 2017-01-03 03:30 | NUR ---
IN TO CHECK ON PT, PT SNORING SOFTLY. RR EVEN AND UNLABORED. NO APPARENT DISTRESS NOTED. BED ALARM ON, CALL LIGHT IN REACH.
--- NOTE | 2017-01-03 05:12 | NUR ---
PT HAD UNEVENTFUL SHIFT. SHOWERED BEFORE BED PER REQUEST. PT DENIES PAIN DURING SHIFT. TRACE EDEMA IN THE RLE. SL AND ON RA. UP WITH 1 PERSON STANDBY ASSIST WITH FWW. CALLS APROPRIATELY. BED ALARM IN PLACE.
--- NOTE | 2017-01-03 07:14 | NUR ---
RECIEVED BEDSIDE REPORT FROM CRISTINA MARIO. PT AWAKE, ALERT. DENIED NEEDS. PT IN BED WITH BED ALARM ON. PER REPORT, PT USED CALL LIGHT APROPRIATELY THROUGHOUT NIGHT WITHOUT ATTEMPTS TO GET OUT OF BED WITHOUT CALLING FOR AND WAITING FOR ASSISTANCE.
--- NOTE | 2017-01-03 08:33 | NUR ---
UP EATING BREAKFAST IN HER BED ALSO GOT HER TOOTHBRUSH READY TO BRUSH HER TEETH AND SHE WASHED HER FACE.
--- NOTE | 2017-01-03 09:25 | NUR ---
PT SITTING UP IN BED. ENCOURAGED PT TO GET UP TO RECLINER, PT REFUSED, STATED THAT IT HURTS HER ABDOMEN TO SIT UP IN CHAIR, GESTURING TO HER HERNIA. DID AGREE TO AMBULATE IN HALLS IN "A LITTLE WHILE". DENIED PAIN AT THIS TIME. TRACE EDEMA TO RLE NOTED, NO INCREASE IN THIS FROM YESTERDAY. CMS INTACT. PT ALERT, ORIENTED TO SELF, PLACE, YEAR, DISORIENTED TO DAY AND MONTH, TO EVENTS. REORIENTED PT. BED ALARM ON, CALL BUTTON IN REACH, PT EDUCATED REGARDING FALL PRECAUTIONS AND NEED TO USE CALL BUTTON.
--- NOTE | 2017-01-03 10:54 | NUR ---
PT AMBULATED IN HALLWAY, WALKED FROM ROOM 110, TO [facility] NURSES' STATION, AROUND "LOOP", AND BACK TO ROOM WITH STANDBY ASSIST USING WALKER. DENIED LIGHTHEADEDNESS OR DIZZINESS. TO BATHROOM AFTER WALK, VOIDED 300 CC URINE, THEN TO RECLINER.
--- NOTE | 2017-01-03 11:51 | NUR ---
GAVE BEDSIDE REPORT TO TOSHIA Grajeda RN, WHO WILL ASSUME CARE OF THIS PT.
--- NOTE | 2017-01-03 13:26 | NUR ---
Patient sleeping on left side in no distress. Call light in reach, bed alarm on.
--- NOTE | 2017-01-03 16:55 | NUR ---
patient asks for lights to be turned off, denies other needs.
--- NOTE | 2017-01-03 16:55 | NUR ---
Assumed care of patient who is resting in bed in no distress at this time. Call light in reach.
--- NOTE | 2017-01-03 18:30 | NUR ---
PATIENT SLEEPING IN NO DISTRESS, CALL LIGHT IN REACH, BED ALARM IN PLACE.
--- NOTE | 2017-01-03 19:20 | NUR ---
REPORT RECVD FROM TOSHIA EVANS. IN TO SEE PT, PT SLEEPING. RR EVEN AND UNLABORED. BED ALARM ON, CALL LIGHT IN REACH.
--- NOTE | 2017-01-03 19:57 | NUR ---
PT USED CALL LIGHT FOR ICE WATER. RECEIVED. THANKED PT FOR USING CALL LIGHT.
--- NOTE | 2017-01-03 22:10 | NUR ---
IN TO SEE PT, PT SLEEPING. AWAKENS EASILY TO VOCIE. ASSESSMENT COMPLETE AND PM MEDICATIONS GIVEN. TRACE EDEMA NOTED IN THE RLE. PT STATES SHE HAD A GOOD DAY. NO FURTHER NEEDS AT THIS TIME. PT REPOSITIONED BY SELF TO L SIDE. BED ALARM ON, CALL LIGHT IN REACH.
--- NOTE | 2017-01-04 01:15 | NUR ---
IN TO CHECK ON PT, PT LYING ON L SIDE. APPEARS TO BE SLEEPING. RR EVEN AND UNLABORED. BED ALARM ON, CALL LIGHT IN REACH.
--- NOTE | 2017-01-04 03:30 | NUR ---
IN TO CHECK ON PT, PT APPEARS TO BE SLEEPING. LYING ON L SIDE. RR EVEN AND UNLABORED. NO APPARENT DISTRESS NOTED. BED ALARM ON, CALL LIGHT IN REACH.
--- NOTE | 2017-01-04 04:24 | NUR ---
IN TO CHECK ON PT, PT APPEARS TO BE SLEEPING. PT LYING ON BACK IN A SEATED POSITION. RR EVEN AND UNLABORED. O2 @ 2L IN PLACE. NO APPARENT DISTRESS NOTED. CALL LIGHT IN REACH.
--- NOTE | 2017-01-04 05:05 | NUR ---
PT HAS HAD NEVENTFUL SHIFT, RESTED WELL. 1 PERSON ASSIST TO BATHROOM WITH FWW. PT SLOW TO RESPOND TO QUESTIONS. BED ALARM IN PLACE, BUT WILL CALL APPROP.
--- NOTE | 2017-01-04 07:46 | NUR ---
PT RESTING IN BED ALERT TO NURSES AT DOOR WAY. SHE REPORTS NO REQUESTS.
--- NOTE | 2017-01-04 11:51 | NUR ---
PT SITTING UP IN RECLINER EATING LUNCH, REPORTS SHE IS READY FOR SHOWER, SOCIAL SERVICES AIDE IN ROOM TO ASSIST WITH SHOWER AFTER LUNCH. PT HAS NO COMPLAINTS TO REPORT.
--- NOTE | 2017-01-04 14:00 | NUR ---
PT BACK IN BED, RESTING EYES CLOSED RR EVEN NO DISTRESS NOTED, PT ALERT TO VOICE AT BEDSIDE
--- NOTE | 2017-01-04 16:01 | NUR ---
PT RESTIMG IN RECLINER, EYES CLSOED RR EVEN NO DISTRESS NOTED. PT ALERT TO VOICE, REPORTS NO COMPLAINTS OR CONCERNS. SHE SAID "I FEEL FINE" SHE REPORTS SHE WOULD LIKE TO TAKE A SHOWER AT THIS TIME
--- NOTE | 2017-01-04 17:00 | NUR ---
NOTIFIED PT BG IS 121, V/S STABLE PT REPORTS SHE DONT FEEL WELL AND HAS BEEN DROWSY MOST THE SHIFT, ALERT TO VOICE, AND HAS BEEN UP TO RECLINER FOR MEALS
--- NOTE | 2017-01-04 17:14 | NUR ---
PT HAS BEEN UP TO RECLINER FOR MEALS HAS SLEEPING INTERMITTEN OVER SHIFT, ALERT TO VOICE FOR ASSESSMENTS. COOPERATIVE WITH CARE. VOIDING QUANTITY SUFFICIENT. HAS MIRLAX THIS AM, NO BM TODAY. HAS NOT REPORTED ANY PAIN. ONE PERSON ASSIST. NEEDS BED ALARM/CHAIR ALARM.
--- NOTE | 2017-01-04 18:36 | NUR ---
PT IS RESTING IN BED SAFELY WITH CA LIGHT IN REACH AND BED ALARM ON. PT ASKED FOR LIGHTS TO BE TURNED OFF.
--- NOTE | 2017-01-04 19:28 | NUR ---
STRAIGHT CATH URINE SAMPE COLECTED STERILE FIELD MAINTAINED THROUGHOUT. PT TOLERATED WELL
--- NOTE | 2017-01-04 21:38 | NUR ---
coop with assessment, no c/o pain
--- NOTE | 2017-01-04 22:29 | NUR ---
ASSISTED PATIENT TO THE BATHROOM. PATIENT VOIDED AND HAD SMALL BOWEL MOVEMENT. DID BRUSH HER TEETH. PATIENT IS BACK IN BED. CALL LIGHT IS WITHIN REACH. REFILLED ICE WATER.
--- NOTE | 2017-01-05 08:20 | NUR ---
Patient done eating breakfast. Tray taken out and patient requested to get up to the chair. pt washed face.
--- NOTE | 2017-01-05 09:46 | NUR ---
PT REPORTS FEELING BETTER THIS AM. NO C/O PAIN OR NAUSEA. REPORTS HUNGRY, SECOND BREAKFAST ORDERED.
--- NOTE | 2017-01-05 09:59 | NUR ---
Patient is sitting up in chair eating breakfast, again. Patient would like to shower after she is done eating. Vitals taken and I&O's done.
--- NOTE | 2017-01-05 11:00 | NUR ---
PT UP WITH SENIOR ENGINEERING TECH TO SHOWER.
[2017-01-05] MEDS ORDERED: ENOXAPARIN120 MG/0.8 SUB-Q (11:44)
--- NOTE | 2017-01-05 17:01 | NUR ---
PT HAS BEEN UP RECLINER FOR MEALS. UP TO SHOWER TODAY.SHE HAS HAD NO COMPLAINTSM SHE SAID "I FEEL BETTER TODAY" ONE PERSON ASSIST, VOIDING WELL. GOOD NUTRITIONAL INTAKE. HAS NAP INTERMITTENLY THROUGHOUT THE DAY. HAD TWO BREAKFASTS. V/S STABLE.
[2017-01-05] MEDS ORDERED: SERTRALINE HCL25 MG PO (18:49)
[2017-01-05] MEDS ORDERED: METFORMIN HCL1000 MG PO (18:50)
[2017-01-05] MEDS ORDERED: OLANZAPINE ODT10 MG PO (18:50)
--- NOTE | 2017-01-05 19:20 | NUR ---
REPORT RECVD FROM JENNY EVANS, IN TO SEE PT. PT APPEARS TO BE SLEEPING ON L SIDE. PT IS 1 PERSON ASSIST WITH FWW. BED ALARM ON. CALL LIGHT IN REACH.
--- NOTE | 2017-01-05 19:29 | NUR ---
PT UP TO BATHROOM TO VOID. BRUSHED TEETH. WASHED HANDS AND FACE. TOLERATED AMBULATING WITH 1 PERSON ASSIST AND FWW WELL. BACK IN BED. NO FURTHER NEEDS. CALL LIGHT IN REACH.
--- NOTE | 2017-01-05 20:36 | NUR ---
Patient in bed sleeping. Whiteboard updated, room tidied. Patient reminded to call if they need anything.
--- NOTE | 2017-01-05 20:45 | NUR ---
IN TO CHECK ON PT, PT APPEARS TO BE SLEEPING. AWAKEN EASILY TO VOICE. ASSESSMENT COMPLETE AND PM MEDICATINS GIVEN. NO FURTHER NEEDS AT THIS TIME. BED ALARM ON AND CALL LIGHT IN REACH.
--- NOTE | 2017-01-06 00:07 | NUR ---
IN TO CHECK ON PT, PT APPEARS TO BE SLEEPING. RR EVENA AND UNLABORED. NO APPARENT DISTRESS NOTED. CALL LIGHT IN REACH.
--- NOTE | 2017-01-06 00:17 | NUR ---
PATIENT IN BED ASLEEP
--- NOTE | 2017-01-06 01:41 | NUR ---
IN TO CHECK ON PT, PT APPEARS TO BE SLEEPING. PT IV SL. RR EVEN AND UNLABORED. NO APPARENT DISTRESS NOTED. BED ALARM ON, CALL LIGHT IN REACH.
--- NOTE | 2017-01-06 03:34 | NUR ---
NURSE IN ROOM
--- NOTE | 2017-01-06 03:36 | NUR ---
PT CALLED, IN TO SEE PT. PT UP TO BATHROOM WITH 1 PERSON STANDBY ASSIST AND FWW. ASSISTED BACK TO BED. NO FURTHER NEEDS AT THIS TIME, CALL LIGHT IN REACH. BED ALARM ON.
--- NOTE | 2017-01-06 04:31 | NUR ---
PT HAS HAD UNEVENTFUL SHIFT, RESTED WELL. NO COMPLAINTS OF PAIN OR NAUSEA. SL. PT UP WITH FWW AND STANBY ASSIST. PT SLOW TO RESPOND DUE TO PREVIOUS CVA. VITALS STABLE. BED ALARM AND CHAIR ALARM ON. POSSIBLE D/C TO [facility] TODAY.
--- NOTE | 2017-01-06 07:30 | NUR ---
pt up to bathroom with alexandrew and mandy assist. pt tolerated well. back to bed. visible from nurses station.
--- NOTE | 2017-01-06 08:50 | NUR ---
PT AWAKE IN BED. TOOK BREAKFAST TRAY. PICKED UP ROOM. EMPTYED GARBAGE.
--- NOTE | 2017-01-06 09:37 | NUR ---
PT RESTING IN BED WITH EYE'S CLOSED. VISIBLE FROM NURSES STATION. BED ALARM IN PLACE.
--- NOTE | 2017-01-06 10:02 | NUR ---
PT AWAKE IN BED. TOOK LUNCH ORDER. FRESH ICE WATER. JANN
--- NOTE | 2017-01-06 10:37 | NUR ---
pt resting in bed watching tv. denies needs. visible from nurses station. bed alarm in place.
--- NOTE | 2017-01-06 11:30 | NUR ---
PT UP TO CHAIR FOR LUNCH. USED FWW. STEADY ON FEET. VISIBLE FROM NURSES STATION.
--- NOTE | 2017-01-06 12:44 | NUR ---
PT RESTING IN CHAIR WITH EYE'S CLOSED. RESPIRATIONS EVEN AND UNLABORED. CALL LIGHT WITHIN REACH.
--- NOTE | 2017-01-06 14:04 | NUR ---
PT IN BED AWAKE. FRESH WATER. PT STATED SHE WAS DOING WELL AND SHE DID NOT NEED ANYTHING. DAMARI LIGHT IN REACH
--- NOTE | 2017-01-06 14:31 | NUR ---
INSOLE AND OUTSOLE SPLITTER IN ROOM ASSISTING PT WITH SHOWER.
--- NOTE | 2017-01-06 15:02 | NUR ---
HANDOFF REPORT RECEIVED FROM CRISTINA SULLIVAN.
--- NOTE | 2017-01-06 15:25 | NUR ---
PT AWAKE IN BED. STOCKED ROOM. EMPTYED GARBAGE. TOOK SHOWER.
--- NOTE | 2017-01-06 17:04 | NUR ---
PT SITTING IN CHAIR RESTIGN, DRESSED WAITING FOR DISCHARGE. PT NOTIFIED THAT SHE WILL NOT BE DISCHARGING TODAY, ASSISTED TO GET DRESSED IN [facility]OSPITAL [facility]. PT BEING ASSISTED BY NURSE AIDE, TO HELP ORDER DINNER. PT DENIES OTHER NEEDS AT THIS TIME.
--- NOTE | 2017-01-06 18:15 | NUR ---
BROTHER TO BEDSIDE. REQUESTING UPDATE, PROVIDED. PT RESTING IN BED. PT DENIES NEEDS AT THIS TIME.
--- NOTE | 2017-01-06 18:38 | NUR ---
PT IN BED. FRESH WATER.
--- NOTE | 2017-01-06 19:05 | NUR ---
JEFF REPORT RECIEVED. PATIENT RESTING IN BED. HER BROTHER IS IN THE ROOM. NO NEEDS AT THIS TIME. CALL LIGHT IN REACH.
--- NOTE | 2017-01-06 21:15 | NUR ---
EVEING MEDS GIVEN PER ORDER. PATIENT ASSESSMENT COMPLETE. PATIENT RESTING IN BED. DENIES PAIN OR ANY ISSUES. LUNGS ARE CLEAR. ABD HERNIA TO RIGHT OF UMBILICUS IS SLIGHTLY TENDER, BOWEL SOUNDS ARE ACTIVE. RIGHT LOWER EXTREMITY IS SLIGHTLY SWOLLEN LARGER THAN THE LEFT. NO REDNESS OR HEAT NOTED ON THE LEFT LOWER EXTREMITY SKIN. PATIENT DENIES NEEDS AT THIS TIME. IS AAOX3, SLOW TO RESPOND AND PLEASANT. BED ALARM ON. CALL LIGHT IN REACH.
--- NOTE | 2017-01-06 21:26 | NUR ---
ROUNDED ON PATIENT CHARGE. ALL QUESTIONS ANSWERED. NO CONCERNS OR COMPLAINTS AT THIS TIME. CALL LIGHT IN REACH AND BED ALARM ON.
--- NOTE | 2017-01-06 23:00 | NUR ---
PATIENT RESTING IN BED. EYES CLOSED. RR 16. BED ALARM ON. CALL LIGHT IN REACH.
--- NOTE | 2017-01-07 01:15 | NUR ---
PATIENT RESTING IN BED. EYES CLOSED. RR16. BED ALARM ON. CALL LIGHT IN REACH.
--- NOTE | 2017-01-07 03:30 | NUR ---
PATIENT RESTING IN BED. EYES CLOSED. RR16. CALL LIGHT IN REACH.
--- NOTE | 2017-01-07 05:24 | NUR ---
PATIENT RESTED WELL THROUGHOUT THE NIGHT. NO IV ACCESS, MD AWARE. NO PAIN REPORTED. SBA W/FWW. VS WNL.
--- NOTE | 2017-01-07 06:45 | NUR ---
PATIENT RESTING IN BED, DRINKING COFFEE. DENIES PAIN OR ANY DISCOMFORT AT THIS TIME. CALL LIGHT IN REACH.
--- NOTE | 2017-01-07 07:13 | NUR ---
RECIEVED BEDSIDE REPORT FROM CRISTINA KWAN AND CRISTINA MARIO. PT SLEEPING, BREATHING EVEN AND UNLABORED.
--- NOTE | 2017-01-07 16:45 | NUR ---
GAVE PT A WARM BLANKET AFTER SHOWER. PT STATED SHE FELT "WONDERFUL" AFTER HER SHOWER. PT LAYING ON SIDE IN BED. NO COMPLATINTS AT THIS TIME.
--- NOTE | 2017-01-07 18:02 | NUR ---
PT HAD UNEVENTFUL DAY. PT REPORTED SEEING A MOUSE IN HER ROOM, NO EVIDENCE OF MOUSE NOTED. PT UP TO SHOWER. PT REPORTS NO PAIN, NO SOB. NO IV SITE, AWARE.
--- NOTE | 2017-01-07 19:02 | NUR ---
PATIENT TOOK SHOWER AROUND 1630 SHE DID HER OWN SHOWER I JUST STOOD BY IN CASE SHE NEEDED ANY HELP.
--- NOTE | 2017-01-07 19:05 | NUR ---
SHIFT REPORT RECIEVED. PATIENT RESTING IN BED. BED ALARM ON. DOOR AND CURTAIN OPEN PER PATIENT REQUEST.
--- NOTE | 2017-01-07 21:20 | NUR ---
EVENING MEDS GIVEN PER ORDER AND PATIENT ASSESSMENT COMPLETE. PATIENT RESTING IN BED WITH EYES CLOSED. AROUSED TO VOICE. PATIENT IS ALERT TO SELF ONLY. DENIES PAIN OR NAUSEA. LUNGS ARE DIMINISHED THROUGOUT BUT CLEAR. ABD IS NONTENDER, UMBILICAL HERNIA PRESENT, BOWEL SOUNDS ACTIVE. RIGHT LOWER EXTREMITY IS SLIGHTLY LARGER THAN THE LEFT, BUT NO PITTING EDEMA. PEDAL PULSES ARE STRONG AND EQUAL. NO FURTHER NEEDS AT THIS TIME. CALL LIGHT IN REACH. BED ALARM ON.
--- NOTE | 2017-01-07 23:40 | NUR ---
PATIENT RESTING IN BED. EYES CLOSED. RR16. BED ALARM ON. CALL LIGHT IN REACH.
--- NOTE | 2017-01-08 01:15 | NUR ---
PATIENT UP TO THE BATHROOM. SBA. PATIENT REPORTED A HEADACHE, PRN TYLENOL PROVIDED. NO FURTHER NEEDS AT THIS TIME. CALL LIGHT IN REACH.
--- NOTE | 2017-01-08 03:40 | NUR ---
PATIENT RESTING. EYES CLOSED. RR 18. CALL LIGHT IN REACH.
--- NOTE | 2017-01-08 05:33 | NUR ---
PATIENT RESTED WELL THROUGHOUT THE SHIFT. IS ORIENTED ONLY TO SELF. SBA W/FWW. NO NUASEA REPORTED. HEADACHE TREATED WITH PRN TYLENOL X1.
--- NOTE | 2017-01-08 06:05 | NUR ---
PATIENT RESTING IN BED. VITAL SIGNS COLLECTED BY APARNA BERGERON. NO NEEDS AT THIS TIME. CONTINUING TO REST. CALL LIGHT IN REACH.
--- NOTE | 2017-01-08 07:05 | NUR ---
RECIEVED BEDSIDE REPORT FROM CRISTINA KWAN. PT SLEEPING, BREATHING EVEN AND UNLABORED. PT APPEARS COMFORTABLE.
--- NOTE | 2017-01-08 07:35 | NUR ---
patient wanted a cup of hot tea, she said she would shower after she ate her breakfast.
--- NOTE | 2017-01-08 07:46 | NUR ---
PT AWAKE AND COOPERATIVE. NO COMPLAINTS OR CONCERNS AT THIS TIME. PT A&O X 3.
--- NOTE | 2017-01-08 17:27 | NUR ---
PT HAD NO COMPLAINTS THIS SHIFT. UP TO SHOWER THIS AM. NO COMPLAINTS OF PAIN. NO IV ACCESS. TOLERATED LOVENOX INJECTION WELL.
--- NOTE | 2017-01-08 19:05 | NUR ---
SHIFT REPORT RECIEVED. PATIENT RESTING IN BED. EYES CLOSED. RR14. CALL LIGHT IN REACH.
--- NOTE | 2017-01-08 20:50 | NUR ---
PATIENT ASSESSMENT COMPLETE. EVENING MEDS GIVEN PER ORDER. PATIENT IS ORIENTED TO ALL EXCEPT THE EVENT. PATIENT DENIES PAIN OR NAUSEA. LUNGS ARE CLEAR BUT DIMINISHED IN THE BASES. ABD HAS A LARGE UMBILICAL HERNIA TO THE RIGHT SIDE, IS SLIGHTLY TENDER, BOWEL SOUNDS ACTIVE. RIGHT LEG IS SLIGHTLY LARGER THAN THE LEFT, NON PITTING EDEMA. PEDAL PULSES STRONG BILATERALLY. CMS INTACT. PATIENT DENIES NEEDS AT THIS TIME. CALL LIGHT IN REACH.
--- NOTE | 2017-01-08 22:30 | NUR ---
PATIENT RESTING IN BED. EYES CLOSED. RR18. CALL LIGHT IN REACH.
--- NOTE | 2017-01-09 00:14 | NUR ---
PATIENT RESTING IN BED. EYES CLOSED. RR18. CALL LIGHT IN REACH.
--- NOTE | 2017-01-09 01:52 | NUR ---
PATIENT RESTING IN BED. WATCHING TV. REQUESTED HOT TEA, WHICH WAS PROVIDED. CALL LIGHT IN REACH.
--- NOTE | 2017-01-09 03:45 | NUR ---
PATIENT RESTING IN BED. EYES CLOSED. RR16. CALL LIGHT IN REACH.
--- NOTE | 2017-01-09 05:08 | NUR ---
PATIENT RESTED WELL THROUGHOUT SHIFT. NO PAIN REPORTED. SBA W/FWW TO THE BATHROOM. PATIENT USES CALL LIGHT APPROPRIATELY. OIRENTED TO PERSON AND PLACE. VS WNL.
--- NOTE | 2017-01-09 06:40 | NUR ---
PATIENT RESTING. EYES CLOSED. RR 18. CALL LIGHT IN REACH.
--- NOTE | 2017-01-09 07:29 | NUR ---
RECIEVED BEDSIDE REPORT FROM CRISTINA KWAN. PT SLEEPING WELL, BREATHING EVEN AND UNLABORED. PT APPEARS COMFORTABLE.
--- NOTE | 2017-01-09 07:53 | NUR ---
LASHANDAEINOleg WAS IM BED, I ASKED IF SHE WANTED A SHOWER TSHMalcom SAID MAYBE LATER "I SHOWERED YESTERDAY", SHE ASKED ABOUT WHEN SHE WAS LEAVING I ASKED THE NURSE AND RELAYED TO HER SHE SAID SHE WOULD BE GOING TO [facility] ON TUESDAY.
--- NOTE | 2017-01-09 13:23 | NUR ---
PT RESTING, REQUESTED LIGHTS BE TURNED OFF. NO REPORTS OF SEEING MICE IN ROOM THIS SHIFT.
--- NOTE | 2017-01-09 17:59 | NUR ---
PT REPORTS NEW ONSET NAUSEA. NO ABD PAIN, NO DIARRHEA, BM WNL. PT HAS NO IV ACCESS, IV ZOFRAN ONLY ON MAY. CALLED DR. LOMBARDI, TELEPHONE ORDER TO GIVE PO ZOFRAN Q 6HRS PRN NAUSEA.
--- NOTE | 2017-01-09 18:14 | NUR ---
PT REPORTED NAUSEA AT END OF SHIFT. PO ZOFRAN GIVEN. PT RESTED MOST OF THE DAY. NO REPORTS OF DIARRHEA, CONSTIPATION, OR PAIN. NO IV ACCESS. EATING AND DRINKING WELL. TOLERATES ADA DIET.
--- NOTE | 2017-01-09 19:00 | NUR ---
RECEIVED REPORT FROM RN. PATIENT IS RESTING COMFORTABLY IN BED. CALL LIGHT WITHIN REACH.
--- NOTE | 2017-01-09 20:46 | NUR ---
PATIENT RESTING COMFORTABLY IN BED, BREATHING IS EVEN AND UNLABORED. DENIES NEEDS AT THIS TIME. MEDICATIONS GIVEN AND ASSESSMENT DONE. CALL LIGHT WITHIN REACH.
--- NOTE | 2017-01-09 22:33 | NUR ---
PATIENT RESTING COMFORTABLY IN BED, BREATHING IS EVEN AND UNLABORED ON RA. FRESH WATER GIVEN, DENIES FURTHER NEEDS. CALL LIGHT WITHIN REACH.
--- NOTE | 2017-01-09 22:52 | NUR ---
PATIENT IS RESTING COMFORTABLY IN BED, BREATHING IS EVEN AND UNLABORED. DENIES NEEDS AT THIS TIME. CALL LIGHT WITHIN REACH.
--- NOTE | 2017-01-10 04:00 | NUR ---
PATIENT RESTING COMFORTABLY IN BED, BREATHING IS EVEN AND UNLABORED. DENIES NEEDS AT THIS TIME. CALL LIGHT WITHIN REACH, ASSESSMENT DONE.
--- NOTE | 2017-01-10 04:26 | NUR ---
ASSISTED PATIENT UP TO BATHROOM WITH SBA/FWW/NON-SLIP SOCKS. DENIES OTHER NEEDS. NOW RESTING COMFORTABLY IN BED, NEW WARM BLANKET GIVEN. CALL LIGHT WITHIN REACH.
--- NOTE | 2017-01-10 04:51 | NUR ---
PATIENT'S NIGHT WAS UNEVENTUL. SHE HAS BEEN RESTING COMFORTABLY IN BED THROUGHOUT SHIFT. VSS, NO COMPLAINTS OF PAIN. SHE IS SBA, DOES NOT HAVE IV ACCESS. NO ACUTE CHANGES FROM BEGINNING OF SHIFT ASSESSMENT.
--- NOTE | 2017-01-10 07:12 | NUR ---
RECIEVED BEDSIDE REPORT FROM SHABNAM RN. PT SLEEPING SOUNDLY, BREATHING EVEN AND UNLABORED. NO C/O NAUSEA OVERNIGHT PER NOC RN.
--- NOTE | 2017-01-10 08:28 | NUR ---
PT STATES SHE IS UNABLE TO PUT WORDS TOGETHER, YET SHE SOUNDS COHERANT TO THIS RN. PT ATE ONLY SMALL AMT OF BREAKFAST. PT REPORTS FEELING MUCH BETTER.
--- NOTE | 2017-01-10 10:00 | NUR ---
PT CALLED THIS RN INTO ROOM TO BRING HER PURSE. SHE WAS LOOKING FOR A CARD. PT STATED SHE THOUGHT A FAMILY MEMBER CAME IN AND TOOK THE CARD TO GET HER AN E-CIG. THIS NURSE EXPLAINED THAT SHE HAD BEEN IN THE HOSPITAL FOR AN EXTENDED PERIOD OF TIME AND HAD NOT BEEN SMOKING. PT ACCEPTED THAT ANSWER. SEVERAL MINUTES LATER, PT WAS VERY TEARFUL AND CRYING THAT SHE HAD NOT SMOKED IN 3 DAYS. PT DID NOT WANT TO DISCUSS WHY SHE WAS TEARFUL, ASKING THIS RN NOT TO TALK TO HER. REMINDED PT TO CALL IF SHE WANTED TO TALK TO THIS RN OR IF WE COULD HELP HER AT ALL.
--- NOTE | 2017-01-10 13:29 | NUR ---
PT DRESSED AND READY FOR DISCHARGE
--- NOTE | 2017-01-10 14:01 | NUR ---
PT DISCHARGED TO [facility]. REPORT CALLED TO MIQUEL AT THE FACILITY. PT PACKET WAS PLACED IN PT BELONGING BAG. PT HAD BELONGINGS, PURSE, AND CLOTHES. PT WAS PLACED IN CARE RIDE TAXI.
== END 2017-01-10 13:35 | disposition hospice, inpatient (51) | DRG 300 ==
LOC: ED 13:39 → MS 17:43
PROVIDERS: ADMIT Internal Medicine
DX: I82.411 Acute embolism and thrombosis of right femoral vein (principal); C78.6 Secondary malignant neoplasm of retroperitoneum and peritoneum; C78.00 Secondary malignant neoplasm of unspecified lung; K43.6 Other and unspecified ventral hernia with obstruction, without gangrene; I82.431 Acute embolism and thrombosis of right popliteal vein; E11.65 Type 2 diabetes mellitus with hyperglycemia; Z79.4 Long term (current) use of insulin; Z85.43 Personal history of malignant neoplasm of ovary; F29 Unspecified psychosis not due to a substance or known physiological condition; Z51.5 Encounter for palliative care; Z66 Do not resuscitate; J44.9 Chronic obstructive pulmonary disease, unspecified; I69.320 Aphasia following cerebral infarction; E78.00 Pure hypercholesterolemia, unspecified; Z72.0 Tobacco use
CPT/HCPCS: 36415; 80053; 81001; 83735; 84425; 84439; 84443; 85025; 87088; 93971; 96372; 97116; 97163; 99285; J1650; J2405; J7120